=== PATIENT | male | born 1950 | race Caucasian/White ===

== ENCOUNTER → 2017-01-31 | Outpatient (CLI) | payer MEDICARE, OTHER ==
[2015-07-23 10:55] VITALS: BP 133/67
[~2017-01-31] MED LIST: ACET650T10 PO; ALBUTEROL IH; ASPI-482 PO; CEPH-264 PO; CONTRAST GIVEN MC PRN; FENO134C PO; IOHEXOL 240 MG/ML 50ML VIAL. PO ONE; LISI-334 PO; METF500T4 PO; OXYC-244 PO; PROC10TA57 PO; SIMV20TA3 PO
--- NOTE | 2017-01-31 08:45 | RAD ---
Indication follow-up. History of testicular malignancy. PA and lateral views of the chest were obtained. Comparison is made to a study 08/01/2016. The heart, pulmonary vessels and mediastinum appear normal. The lungs are clear of acute infiltrates. Minimally tortuous thoracic aorta is noted. There has not been a significant change in the appearance of the chest compared to the previous exam. IMPRESSION: No acute or focal process. No significant change
--- NOTE | 2017-01-31 09:34 | RAD ---
Indication restage testicular malignancy. Axial images through the abdomen and pelvis were obtained. Oral contrast was administered. IV contrast was not. Comparison is made to a study 08/01/2016. The lung bases are clear. The liver and spleen appear unremarkable. The gallbladder appears grossly normal. No pancreatic or adrenal anomalies are seen. There is a low-density mass associated with the right kidney compatible with a cyst similar to the previous exam. Minute left renal calculi are noted also appearing similar. An acute finding in the abdomen is not seen. There is no significant central or retroperitoneal adenopathy. In the pelvis no acute finding is seen. There is no significant pelvic or inguinal adenopathy. There is no evidence of metastatic disease in the abdomen or pelvis. There are degenerative changes involving both femoral heads left greater than right compatible with AVN. IMPRESSION: No acute finding seen in the abdomen or pelvis. No significant change compared to the examination 6 months ago. No evidence of metastatic disease. Chronic musculoskeletal changes PQRS Compliance Statement: One or more of the following individualized dose reduction techniques were utilized for this examination: 1. Automated exposure control 2. Adjustment of the mA and/or kV according to patient size 3. Use of iterative reconstruction technique
== END | disposition home or self-care (01) ==
LOC: CT 07:25
PROVIDERS: ATTEND Radiology Radiation Oncology
DX: C62.90 Malignant neoplasm of unspecified testis, unspecified whether descended or undescended (principal)
CPT/HCPCS: 71020; 74176; Q9966

== ENCOUNTER 2017-05-02 13:34 | Emergency (ER) | payer OTHER ==
[~2017-05-02] VITALS: Ht 175.3 cm; Wt 97.1 kg
[~2017-05-02 13:34] MED LIST changes: -CONTRAST GIVEN MC PRN; -IOHEXOL 240 MG/ML 50ML VIAL. PO ONE; -OXYC-244 PO; +OXYC-327 PO
[2017-05-02 14:05] VITALS: BP 141/81
--- NOTE | 2017-05-02 14:38 | RAD ---
Indication dizziness. Suspect CVA. Protocol study. A single view of the chest was obtained and is compared to an examination 3 months earlier. The heart and pulmonary vessels are within normal limits. The lungs are clear. No focal infiltrate is seen. There is no significant pleural fluid. A significant change compared to the previous exam is not seen. IMPRESSION: No acute or focal process. No significant change
[2017-05-02 14:43] LABS: BASO % 0 % (0-3); EOS % 4 % (0-3); HEMATOCRIT 42.4 % (39.0-53.0); HEMOGLOBIN 14.4 g/dL (13.0-17.5); LYMPH # 1.7 x10^3/uL (1.0-4.8); LYMPH % 30 % (24-48); MEAN CORPUSCULAR HEMOGLOBIN 31 pg (25-35); MEAN CORPUSCULAR HGB CONC 34 g/dL (31-37); MEAN CORPUSCULAR VOLUME 90 fL (79-100); MONO % 9 % (0-9); NEUT % 57 % (31-73); PLATELET COUNT 281 x10^3/uL (140-400); RED CELL DISTRIBUTION WIDTH 13.5 % (11.5-14.5); WHITE BLOOD COUNT 5.6 x10^3/uL (4.0-11.0)
[2017-05-02 14:50] LABS: CALCIUM 9.6 mg/dL (8.5-10.1); CREATININE 1.7 mg/dL (0.7-1.3); GFR 40.4; POTASSIUM 4.9 mmol/L (3.5-5.1)
[2017-05-02 15:02] LABS: ALBUMIN 4.5 g/dL (3.4-5.0); DIRECT BILIRUBIN 0.1 mg/dL (0.0-0.2); TOTAL BILIRUBIN 0.3 mg/dL (0.2-1.0); TOTAL PROTEIN 7.9 g/dL (6.4-8.2)
[2017-05-02 15:18] LABS: BILIRUBIN,URINE NEGATIVE (NEG); GLUCOSE,URINE NEGATIVE (NEG); NITRITE,URINE NEGATIVE (NEG); PROTEIN,URINE NEGATIVE (NEG-TRACE); UROBILINOGEN,URINE 0.2 mg/dL (0.2 mg/dL)
[2017-05-02 15:56] LABS: BACTERIA,URINE FEW /HPF (0-FEW); RBC,URINE 0 /HPF (0-2); SQUAMOUS EPITHELIAL CELL,UR FEW /LPF; WBC,URINE OCC /HPF (0-4)
--- NOTE | 2017-05-02 16:02 | PHYS DOC ---
Past Medical History Past Medical History: No Pertinent History, Asthma, High Cholesterol, Hypertension Past Surgical History: Other Additional Past Surgical Histo: testical removal Alcohol Use: Rarely Drug Use: None Adult General Chief Complaint Chief Complaint: DIZZY/LIGHT HEADED HPI HPI 66-year-old male presenting the emergency department today with generalized dizziness intermittently over the past 2 weeks. The dizziness comes and goes and is worse with standing up. He reports recently changed her blood pressure medication after which he started having his dizziness. He denies nausea vomiting vision changes or unilateral numbness weakness or tingling. Location generalized. Alleviated by rest. Review of systems was negative for chest pain shortness of breath fevers chills diarrhea constipation. All other review of systems is negative unless otherwise noted in history of present illness. ED course: 66-year-old male presenting to the emergency department today with intermittent dizziness consistent with orthostasis after changing his blood pressure medication. Triage vitals afebrile with a normal heart rate. Pertinent physical examination findings are unremarkable. Normal physical examination. EKG reviewed by myself shows sinus rhythm with a regular rate. ST segments congruent. Not consistent with ACS. Chest x-ray reviewed by myself shows no obvious infiltrate or pneumothorax present. No obvious acute cardiopulmonary process present. Blood work unremarkable. Patient currently is not very symptomatic. Symptoms probably secondary to his blood pressure changes recently. I will refer him back to his primary care physician for continue management of his hypertension and secondary side effects. The patient was then discharged home in stable condition to follow up with their primary care physician over the next 2-3 days. They were to return if their symptoms worsened or if they were concerned for any reason. [id number] discharge instructions and return precautions were given. Patient's questions were answered to their satisfaction. Patient is comfortable plan. Review of Systems Review of Systems SEE ABOVE. Allergies Allergies Allergies Coded Allergies Type Severity Reaction Last Updated Verified ibuprofen Allergy Intermediate ADVISED NOT TO TAKE BY HIS DOCTOR DUE TO KIDNEY PROBLEM 07/23/15 Yes Physical Exam Physical Exam SEE ABOVE Constitutional: Well developed, well nourished, no acute distress, non-toxic appearance. [] HENT: Normocephalic, atraumatic, bilateral external ears normal, oropharynx moist, no oral exudates, nose normal. [] Eyes: PERRLA, EOMI, conjunctiva normal, no discharge. [] Neck: Normal range of motion, no tenderness, supple, no stridor. [] Cardiovascular:Heart rate regular rhythm, no murmur [] Lungs & Thorax: Bilateral breath sounds clear to auscultation [] Abdomen: Bowel sounds normal, soft, no tenderness, no masses, no pulsatile masses. [] Skin: Warm, dry, no erythema, no rash. [] Back: No tenderness, no CVA tenderness. [] Extremities: No tenderness, no cyanosis, no clubbing, ROM intact, no edema. [] Neurologic: Alert and oriented X 3, normal motor function, normal sensory function, no focal deficits noted. [] Psychologic: Affect normal, judgement normal, mood normal. [] Current Patient Data Vital Signs Vital Signs Date Time Temp Pulse Resp B/P (MAP) Pulse Ox O2 Delivery O2 Flow Rate FiO2 05/02/17 14:05 97.8 74 18 141/81 (101) 97 Room Air 97.8 Lab Values Laboratory Tests Test 05/02/17 14:13 05/02/17 15:05 White Blood Count 5.6 x10^3/uL (4.0-11.0) Red Blood Count 4.70 x10^6/uL (4.30-5.70) Hemoglobin 14.4 g/dL (13.0-17.5) Hematocrit 42.4 % (39.0-53.0) Mean Corpuscular Volume 90 fL (79-100) Mean Corpuscular Hemoglobin 31 pg (25-35) Mean Corpuscular Hemoglobin Concent 34 g/dL (31-37) Red Cell Distribution Width 13.5 % (11.5-14.5) Platelet Count 281 x10^3/uL (140-400) Neutrophils (%) (Auto) 57 % (31-73) Lymphocytes (%) (Auto) 30 % (24-48) Monocytes (%) (Auto) 9 % (0-9) Eosinophils (%) (Auto) 4 % (0-3) H Basophils (%) (Auto) 0 % (0-3) Neutrophils # (Auto) 3.2 x10^3uL (1.8-7.7) Lymphocytes # (Auto) 1.7 x10^3/uL (1.0-4.8) Monocytes # (Auto) 0.5 x10^3/uL (0.0-1.1) Eosinophils # (Auto) 0.2 x10^3/uL (0.0-0.7) Basophils # (Auto) 0.0 x10^3/uL (0.0-0.2) Sodium Level 136 mmol/L (136-145) Potassium Level 4.9 mmol/L (3.5-5.1) Chloride Level 100 mmol/L (98-107) Carbon Dioxide Level 27 mmol/L (21-32) Anion Gap 9 (6-14) Blood Urea Nitrogen 29 mg/dL (8-26) H Creatinine 1.7 mg/dL (0.7-1.3) H Estimated GFR (Cockcroft-Gault) 40.4 Glucose Level 109 mg/dL (70-99) H Lactic Acid Level 1.8 mmol/L (0.4-2.0) Calcium Level 9.6 mg/dL (8.5-10.1) Total Bilirubin 0.3 mg/dL (0.2-1.0) Direct Bilirubin 0.1 mg/dL (0.0-0.2) Aspartate Amino Transferase (AST) 30 U/L (15-37) Alanine Aminotransferase (ALT) 41 U/L (16-63) Alkaline Phosphatase 56 U/L (46-116) Troponin I Quantitative < 0.017 ng/mL (0.000-0.055) MN-Tfp-S-Type Natriuretic Peptide 28 pg/mL (0-124) Total Protein 7.9 g/dL (6.4-8.2) Albumin 4.5 g/dL (3.4-5.0) Lipase 100 U/L (73-393) Urine Collection Type Void Urine Color Yellow Urine Clarity Clear Urine pH 5.0 Urine Specific [place] 1.015 Urine Protein Negative mg/dL (NEG-TRACE) Urine Glucose (UA) Negative mg/dL (NEG) Urine Ketones (Stick) Negative mg/dL (NEG) Urine Blood Negative (NEG) Urine Nitrite Negative (NEG) Urine Bilirubin Negative (NEG) Urine Urobilinogen Dipstick 0.2 mg/dL (0.2 mg/dL) Urine Leukocyte Esterase Negative (NEG) Urine RBC 0 /HPF (0-2) Urine WBC Occ /HPF (0-4) Urine Squamous Epithelial Cells Few /LPF Urine Bacteria Few /HPF (0-FEW) Urine Hyaline Casts Few /HPF Urine Mucus Mod /LPF Laboratory Tests 05/02/17 14:13 Laboratory Tests 05/02/17 14:13 EKG EKG [] Radiology/Procedures Radiology/Procedures [] Course & Med Decision Making Course & Med Decision Making Pertinent Labs and Imaging studies reviewed. (See chart for details) [] Dragon Disclaimer Dragon Disclaimer This electronic medical record was generated, in whole or in part, using a voice recognition dictation system. Departure Departure Impression: Primary Impression: Dizziness Additional Impression: Orthostatic dizziness Disposition: HOME, SELF-CARE Condition: STABLE Referrals: KASSANDRA MOHAN MD (PCP) Patient Instructions: Dizziness, [id number] Additional Instructions: Thank you for allowing us to participate in your care today. Followup with your primary care physician in 3 days if your symptoms do not improve. Call your Primary Doctor tomorrow and inform them of your visit today. If you do not have a primary care provider you can ask for a list of our primary care providers. Return to the emergency department you have any new or concerning findings. This should be evaluated by the primary care physician and any necessary consulting services for continued management within a few days after discharge. Return to emergency room if you have any new or concerning symptoms including but not limited to fever, chills, nausea, vomiting, intractable pain, any new rashes, chest pain, shortness of air, uncontrolled bleeding, difficulty breathing, and/or vision loss. Problem Qualifiers IRENA CASTANON MD May 02, 2017 16:02
--- NOTE | 2017-05-02 16:34 | EKG ---
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
== END 2017-05-02 16:16 | disposition home or self-care (01) ==
LOC: ER 13:34
DX: I10 Essential (primary) hypertension (principal); J45.909 Unspecified asthma, uncomplicated; E78.00 Pure hypercholesterolemia, unspecified; Z88.6 Allergy status to analgesic agent
CPT/HCPCS: 36415; 71010; 80048; 80076; 81001; 83605; 83690; 83880; 84484; 85025; 93005; 99285-25

== ENCOUNTER 2017-07-12 13:58 | Inpatient (IN) | payer OTHER, MEDICARE ==
[~2017-07-12] VITALS: Ht 152.4 cm; Wt 97.1 kg
--- NOTE | 2017-07-12 15:22 | PHYS DOC ---
Past Medical History Past Medical History: Asthma, Cancer, High Cholesterol, Hypertension, Other Additional Past Medical Histor: CHRONIC TINNITUS R/T NERVE DAMAGE,TESTICULAR CA W/ RADIATION [place] Past Surgical History: Other Additional Past Surgical Histo: testical removal Alcohol Use: Rarely Drug Use: None Adult General Chief Complaint Chief Complaint: HEADACHE HPI HPI 66-year-old male with a history of hypertension now presents to the emergency department complaining of a several day history of mild gradual onset headache and "feeling funny" today. He describes his blood pressures been uncontrolled recently. He also feels dehydrated and his glucose on arrival was in the 180s. Patient reports taking his diabetic meds and being reasonably compliant with his diabetic diet but not completely so. No chest pain or shortness of breath. No neurologic complaints with normal vision speech strength coordination and gait no fevers chills sweats or shaking chills. Normal bowel and bladder habits No other complaints Review of Systems Review of Systems Constitutional: Denies fever or chills [] Eyes: Denies change in visual acuity, redness, or eye pain [] HENT: Denies nasal congestion or sore throat [] Respiratory: Denies cough or shortness of breath [] Cardiovascular: No additional information not addressed in HPI [] GI: Denies abdominal pain, nausea, vomiting, bloody stools or diarrhea [] : Denies dysuria or hematuria [] Musculoskeletal: Denies back pain or joint pain [] Integument: Denies rash or skin lesions [] Neurologic: Denies headache, focal weakness or sensory changes [] Endocrine: Denies polyuria or polydipsia [] All other systems were reviewed and found to be within normal limits, except as documented in this note. Current Medications Current Medications Current Medications Medications (Trade) Dose Ordered Sig/Alicia Start Time Stop Time Status Last Admin Dose Admin Sodium Chloride 1,000 ml @ 125 mls/hr Q8H 07/12/17 17:14 07/13/17 17:13 Allergies Allergies Allergies Coded Allergies Type Severity Reaction Last Updated Verified ibuprofen Allergy Intermediate ADVISED NOT TO TAKE BY HIS DOCTOR DUE TO KIDNEY PROBLEM 07/23/15 Yes Physical Exam Physical Exam Well-appearing 66-year-old male no acute distress alert and communicative cooperative and appropriate supple neck clear lungs regular rate and rhythm no tachycardia benign abdomen normal remedies nonfocal neuro bleeding extended cranial nerve exam. Constitutional: Well developed, well nourished, no acute distress, non-toxic appearance. [] HENT: Normocephalic, atraumatic, bilateral external ears normal, oropharynx moist, no oral exudates, nose normal. [] Eyes: PERRLA, EOMI, conjunctiva normal, no discharge. [] Neck: Normal range of motion, no tenderness, supple, no stridor. [] Cardiovascular:Heart rate regular rhythm, no murmur [] Lungs & Thorax: Bilateral breath sounds clear to auscultation [] Abdomen: Bowel sounds normal, soft, no tenderness, no masses, no pulsatile masses. [] Skin: Warm, dry, no erythema, no rash. [] Back: No tenderness, no CVA tenderness. [] Extremities: No tenderness, no cyanosis, no clubbing, ROM intact, no edema. [] Neurologic: Alert and oriented X 3, normal motor function, normal sensory function, no focal deficits noted. [] Psychologic: Affect normal, judgement normal, mood normal. [] Current Patient Data Vital Signs Vital Signs Date Time Temp Pulse Resp B/P (MAP) Pulse Ox O2 Delivery O2 Flow Rate FiO2 07/12/17 16:11 82 16 93 07/12/17 14:11 97.9 153/79 (103) Room Air 97.9 Lab Values Laboratory Tests Test 07/12/17 14:26 07/12/17 16:00 Glucose (Fingerstick) 181 mg/dL (70-99) H White Blood Count 6.9 x10^3/uL (4.0-11.0) Red Blood Count 4.81 x10^6/uL (4.30-5.70) Hemoglobin 14.7 g/dL (13.0-17.5) Hematocrit 43.8 % (39.0-53.0) Mean Corpuscular Volume 91 fL (79-100) Mean Corpuscular Hemoglobin 31 pg (25-35) Mean Corpuscular Hemoglobin Concent 34 g/dL (31-37) Red Cell Distribution Width 13.4 % (11.5-14.5) Platelet Count 308 x10^3/uL (140-400) Neutrophils (%) (Auto) 70 % (31-73) Lymphocytes (%) (Auto) 18 % (24-48) L Monocytes (%) (Auto) 8 % (0-9) Eosinophils (%) (Auto) 3 % (0-3) Basophils (%) (Auto) 1 % (0-3) Neutrophils # (Auto) 4.8 x10^3uL (1.8-7.7) Lymphocytes # (Auto) 1.3 x10^3/uL (1.0-4.8) Monocytes # (Auto) 0.6 x10^3/uL (0.0-1.1) Eosinophils # (Auto) 0.2 x10^3/uL (0.0-0.7) Basophils # (Auto) 0.1 x10^3/uL (0.0-0.2) Segmented Neutrophils % 61 % (35-66) Band Neutrophils % 4 % (0-9) Lymphocytes % 18 % (24-48) L Atypical Lymphocytes % (Manual) 1 % (0-0) H Monocytes % 8 % (0-10) Eosinophils % 4 % (0-5) Basophils % 2 % (0-3) Myelocytes % 2 % (0-0) H Platelet Estimate Adequate (ADEQUATE) Sodium Level 136 mmol/L (136-145) Potassium Level 5.9 mmol/L (3.5-5.1) H Chloride Level 101 mmol/L (98-107) Carbon Dioxide Level 26 mmol/L (21-32) Anion Gap 9 (6-14) Blood Urea Nitrogen 32 mg/dL (8-26) H Creatinine 2.0 mg/dL (0.7-1.3) H Estimated GFR (Cockcroft-Gault) 33.5 BUN/Creatinine Ratio 16 (6-20) Glucose Level 139 mg/dL (70-99) H Calcium Level 9.6 mg/dL (8.5-10.1) Total Bilirubin 0.3 mg/dL (0.2-1.0) Aspartate Amino Transferase (AST) 33 U/L (15-37) Alanine Aminotransferase (ALT) 39 U/L (16-63) Alkaline Phosphatase 57 U/L (46-116) Troponin I Quantitative < 0.017 ng/mL (0.000-0.055) Total Protein 7.8 g/dL (6.4-8.2) Albumin 4.4 g/dL (3.4-5.0) Albumin/Globulin Ratio 1.3 (1.0-1.7) Thyroid Stimulating Hormone (TSH) 1.842 uIU/mL (0.358-3.74) Laboratory Tests 07/12/17 16:00 Laboratory Tests 07/12/17 16:00 EKG EKG EKG normal sinus rhythm at 85 normal axis no STEMI interpreted by me[] Radiology/Procedures Radiology/Procedures Chest x-ray normal no acute disease interpreted by me[] Course & Med Decision Making Course & Med Decision Making Pertinent Labs and Imaging studies reviewed. (See chart for details) Signs and symptoms consistent with vague generalized symptoms in a patient with type 2 diabetes, poorly controlled hypertension. She blood pressure sure has been elevated but not critically so. Chest x-ray and EKG unremarkable. Full workup reveals potassium of 5.9 in the setting of acute renal injury with creatinine BUN/creatinine 32 and 2. Treatment initiated for hyperkalemia and case discussed with patient's primary care doctor Dr. Guardado. She is aware the history and findings and agrees with inpatient admission to her service to a telemetry bed for further workup and treatment as needed. Patient and aware and agree. [] Dragon Disclaimer Dragon Disclaimer This electronic medical record was generated, in whole or in part, using a voice recognition dictation system. Departure Departure Impression: Primary Impression: Uncontrolled hypertension Additional Impressions: Acute renal injury Hyperkalemia Disposition: ADMITTED INPATIENT Admitting Physician: Alexia Guardado Condition: STABLE Referrals: ALEXIA GUARDADO MD (PCP) Problem Qualifiers JIE MARTEL MD Jul 12, 2017 15:22
--- NOTE | 2017-07-12 15:41 | RAD ---
Portable chest, 07/12/2017: History: Dizziness, lightheadedness Comparison is made to a study from 05/02/2017. The heart size and pulmonary vascularity are normal. There is mild tortuosity of the thoracic aorta. No pulmonary infiltrates are seen. There is a calcified granuloma in the right base. There is no evidence of pleural fluid. IMPRESSION: No acute cardiopulmonary abnormality is detected.
[2017-07-12] MEDS: IV NORMAL SALINE 1000ML BAG 1,000 ML IV SCH ×10 (16:11→23:22)
[2017-07-12 16:12] LABS: BASO # 0.1 x10^3/uL (0.0-0.2); BASO % 1 % (0-3); EOS % 3 % (0-3); HEMATOCRIT 43.8 % (39.0-53.0); HEMOGLOBIN 14.7 g/dL (13.0-17.5); LYMPH # 1.3 x10^3/uL (1.0-4.8); LYMPH % 18 % (24-48); MEAN CORPUSCULAR HEMOGLOBIN 31 pg (25-35); MEAN CORPUSCULAR HGB CONC 34 g/dL (31-37); MEAN CORPUSCULAR VOLUME 91 fL (79-100); MONO % 8 % (0-9); NEUT % 70 % (31-73); PLATELET COUNT 308 x10^3/uL (140-400); RED BLOOD COUNT 4.81 x10^6/uL (4.30-5.70); RED CELL DISTRIBUTION WIDTH 13.4 % (11.5-14.5); WHITE BLOOD COUNT 6.9 x10^3/uL (4.0-11.0)
--- NOTE | 2017-07-12 16:19 | EKG ---
[facility] [address] [place] [address] Test Date: 2017-07-12 Test Time: 15:59:37 Pat Name: LINO DUMAS Department: Room: Gender: M [employer] Automatic: : 1950 Requested By: JIE MARTEL Order Number: [id number] Reading MD: Hermilo Cotter MD Measurements Intervals [place] Rate: 85 P: 43 OR: 146 QRS: 46 QRSD: 84 T: 50 QT: 360 QTc: 429 Interpretive Statements SINUS RHYTHM Electronically Signed On 07-16-2017 14:08:46 TABULATING CLERK by Hermilo Cotter MD
[2017-07-12 16:25] LABS: CALCIUM 9.6 mg/dL (8.5-10.1); GFR 33.5; POTASSIUM 5.9 mmol/L (3.5-5.1)
[2017-07-12 16:30] LABS: ALBUMIN 4.4 g/dL (3.4-5.0); ALBUMIN/GLOBULIN RATIO 1.3 (1.0-1.7); TOTAL BILIRUBIN 0.3 mg/dL (0.2-1.0); TOTAL PROTEIN 7.8 g/dL (6.4-8.2)
[2017-07-12 16:35] LABS: % BASOS 2 % (0-3); % EOS 4 % (0-5); PLT ESTIMATE ADEQUATE (ADEQUATE)
[2017-07-12] MEDS ORDERED: INSULIN REGULAR 100 UNIT/ML 10ML VIAL. IV ONE (17:15)
[2017-07-12] MEDS ORDERED: SODIUM BICARB ADULT 8.4% 50 MEQ/50 ML DISP.SYRIN. IV ONE (17:15)
[2017-07-12] MEDS ORDERED: DEXTROSE 50% 25 GM / 50ML DISP.SYRIN. IV ONE (17:15)
[2017-07-12] MEDS ORDERED: CALCIUM GLUCONATE 100 MG/ML VIAL for DOSE IN MG. IV ONE (17:15)
[2017-07-12] MEDS ORDERED: ONDANSETRON PF 4 MG/2 ML VIAL. IV PRN (17:15)
[2017-07-12 19:48] LABS: BILIRUBIN,URINE NEGATIVE (NEG); GLUCOSE,URINE 100 mg/dL (NEG); NITRITE,URINE NEGATIVE (NEG); PROTEIN,URINE NEGATIVE (NEG-TRACE); UROBILINOGEN,URINE 0.2 mg/dL (0.2 mg/dL)
[2017-07-12 20:00] VITALS: BP 118/74
[2017-07-12 20:01] LABS: BACTERIA,URINE 0 /HPF (0-FEW); RBC,URINE 0 /HPF (0-2); SQUAMOUS EPITHELIAL CELL,UR FEW /LPF; WBC,URINE OCC /HPF (0-4)
[2017-07-12] MEDS ORDERED: LISI40TA PO (20:18)
[2017-07-12] MEDS ORDERED: ACETAMINOPHEN 325 MG TABLET. PO PRN (20:30)
[2017-07-12] MEDS ORDERED: FENOFIBRATE,MICRONIZED 134 MG CAPSULE PO SCH (21:00)
[2017-07-12] MEDS ORDERED: SIMVASTATIN 20 MG TABLET PO SCH (21:00)
[2017-07-13 00:19] VITALS: BP 122/73
[2017-07-13] MEDS: IV NORMAL SALINE 1000ML BAG 1,000 ML IV SCH ×2 (00:50→05:15)
[2017-07-13 03:00] VITALS: BP 120/66
[2017-07-13 06:16] LABS: CALCIUM 8.9 mg/dL (8.5-10.1); CREATININE 1.5 mg/dL (0.7-1.3); GFR 46.7; POTASSIUM 4.9 mmol/L (3.5-5.1)
[2017-07-13 07:00] VITALS: BP 153/79
--- NOTE | 2017-07-13 08:39 | RAD ---
Renal bilateral ultrasound and duplex 07/12/2017 Clinical indication: Acute renal failure, hypertension. Comparison: CT abdomen and pelvis 01/31/2017 Findings: Right kidney is present measuring 12.9 cm in length without collecting system dilatation. There is a simple appearing superior pole cyst measuring up to 3.0 cm. Patency of the visualized main right renal artery with maximum velocity of 178 cm/s at the mid aspect and distally the velocity is 75 cm/s. There is no delayed systolic acceleration. Main right renal vein is patent. Abdominal aorta demonstrate maximum velocity 88 cm/s. Left kidney is present measuring 11.7 cm in length without collection system dilatation. There is a 0.5 cm echogenicity in the inferior pole of the left kidney compatible with a calculus. There is a tiny 1 cm cyst at the interpolar left kidney. The main right renal artery is patent with maximal velocity of 197 cm/s at the mid aspect. No delayed systolic acceleration. Impression: 1. Mildly elevated velocity at the origin of the main left renal artery which remains patent with no distal tardus parvus waveforms, and may be artifactual. 2. No evidence of right renal arterial stenosis. 3. Both kidneys present without hydronephrosis. 4. A few bilateral renal cysts and probable nonobstructive 0.5 cm left renal calculus.
--- NOTE | 2017-07-13 08:49 | PDOC ---
PROGRESS NOTES Subjective Subjective Patient states that he feels better. Objective Objective Vital Signs Date Time Temp Pulse Resp B/P (MAP) Pulse Ox O2 Delivery O2 Flow Rate FiO2 07/13/17 07:00 97.7 76 18 153/79 (103) 95 Room Air 97.7 07/12/17 20:00 99.0 Intake and Output 07/13/17 07:00 Intake Total 2100 ml Output Total 1200 ml Balance 900 ml Intake Oral 100 ml IV Total 2000 ml Output Urine Total 1200 ml # Voids 1 Physical Exam Abdomen: Normal bowel sounds, Soft, No tenderness Heart: Regular rate Extremities: No edema General: Alert, Oriented X3, No acute distress Lungs: Clear to auscultation Assessment Assessment Problems Medical Problems: (1) Acute renal injury Status: Acute (2) Hyperkalemia Status: Acute Plan Plan of Care 1. Acute renal failure with CKD III - lab much improved with hydration overnight. Taking po well now, will d/c IVF. Consult Nephrology. Renal artery dopplers done this AM, results pending. 2. HTN - BP elevated at admission, improved now. Will resume his usual Lisinopril and follow. 3. DM2 - stable. Metformin held due to renal failure as above. Should be able to resume at discharge or can treat with different medication if Renal advises d /c of Metformin. 4. asthma - stable with prn Albuterol. Has already had flu shot this fall. 5. 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 6. Viral illness - appears to have resolved. Comment Review of Relevant I have reviewed the following items nnamdi (where applicable) has been applied. Labs Laboratory Tests Test 07/12/17 14:26 07/12/17 16:00 07/12/17 19:35 07/13/17 05:15 Glucose (Fingerstick) 181 mg/dL (70-99) White Blood Count 6.9 x10^3/uL (4.0-11.0) Red Blood Count 4.81 x10^6/uL (4.30-5.70) Hemoglobin 14.7 g/dL (13.0-17.5) Hematocrit 43.8 % (39.0-53.0) Mean Corpuscular Volume 91 fL (79-100) Mean Corpuscular Hemoglobin 31 pg (25-35) Mean Corpuscular Hemoglobin Concent 34 g/dL (31-37) Red Cell Distribution Width 13.4 % (11.5-14.5) Platelet Count 308 x10^3/uL (140-400) Neutrophils (%) (Auto) 70 % (31-73) Lymphocytes (%) (Auto) 18 % (24-48) Monocytes (%) (Auto) 8 % (0-9) Eosinophils (%) (Auto) 3 % (0-3) Basophils (%) (Auto) 1 % (0-3) Neutrophils # (Auto) 4.8 x10^3uL (1.8-7.7) Lymphocytes # (Auto) 1.3 x10^3/uL (1.0-4.8) Monocytes # (Auto) 0.6 x10^3/uL (0.0-1.1) Eosinophils # (Auto) 0.2 x10^3/uL (0.0-0.7) Basophils # (Auto) 0.1 x10^3/uL (0.0-0.2) Segmented Neutrophils % 61 % (35-66) Band Neutrophils % 4 % (0-9) Lymphocytes % 18 % (24-48) Atypical Lymphocytes % (Manual) 1 % (0-0) Monocytes % 8 % (0-10) Eosinophils % 4 % (0-5) Basophils % 2 % (0-3) Myelocytes % 2 % (0-0) Platelet Estimate Adequate (ADEQUATE) Sodium Level 136 mmol/L (136-145) 138 mmol/L (136-145) Potassium Level 5.9 mmol/L (3.5-5.1) 4.9 mmol/L (3.5-5.1) Chloride Level 101 mmol/L (98-107) 104 mmol/L (98-107) Carbon Dioxide Level 26 mmol/L (21-32) 25 mmol/L (21-32) Anion Gap 9 (6-14) 9 (6-14) Blood Urea Nitrogen 32 mg/dL (8-26) 29 mg/dL (8-26) Creatinine 2.0 mg/dL (0.7-1.3) 1.5 mg/dL (0.7-1.3) Estimated GFR (Cockcroft-Gault) 33.5 46.7 BUN/Creatinine Ratio 16 (6-20) Glucose Level 139 mg/dL (70-99) 126 mg/dL (70-99) Calcium Level 9.6 mg/dL (8.5-10.1) 8.9 mg/dL (8.5-10.1) Total Bilirubin 0.3 mg/dL (0.2-1.0) Aspartate Amino Transf (AST/SGOT) 33 U/L (15-37) Alanine Aminotransferase (ALT/SGPT) 39 U/L (16-63) Alkaline Phosphatase 57 U/L (46-116) Troponin I Quantitative < 0.017 ng/mL (0.000-0.055) Total Protein 7.8 g/dL (6.4-8.2) Albumin 4.4 g/dL (3.4-5.0) Albumin/Globulin Ratio 1.3 (1.0-1.7) Thyroid Stimulating Hormone (TSH) 1.842 uIU/mL (0.358-3.74) Urine Collection Type Unknown Urine Color Yellow Urine Clarity Clear Urine pH 7.0 Urine Specific [place] 1.015 Urine Protein Negative mg/dL (NEG-TRACE) Urine Glucose (UA) 100 mg/dL (NEG) Urine Ketones (Stick) Negative mg/dL (NEG) Urine Blood Negative (NEG) Urine Nitrite Negative (NEG) Urine Bilirubin Negative (NEG) Urine Urobilinogen Dipstick 0.2 mg/dL (0.2 mg/dL) Urine Leukocyte Esterase Negative (NEG) Urine RBC 0 /HPF (0-2) Urine WBC Occ /HPF (0-4) Urine Squamous Epithelial Cells Few /LPF Urine Bacteria 0 /HPF (0-FEW) Urine Hyaline Casts Moderate /HPF Test 07/13/17 07:31 Glucose (Fingerstick) 211 mg/dL (70-99) Laboratory Tests Test 07/12/17 14:26 07/12/17 16:00 07/12/17 19:35 07/13/17 05:15 Glucose (Fingerstick) 181 mg/dL (70-99) White Blood Count 6.9 x10^3/uL (4.0-11.0) Red Blood Count 4.81 x10^6/uL (4.30-5.70) Hemoglobin 14.7 g/dL (13.0-17.5) Hematocrit 43.8 % (39.0-53.0) Mean Corpuscular Volume 91 fL (79-100) Mean Corpuscular Hemoglobin 31 pg (25-35) Mean Corpuscular Hemoglobin Concent 34 g/dL (31-37) Red Cell Distribution Width 13.4 % (11.5-14.5) Platelet Count 308 x10^3/uL (140-400) Neutrophils (%) (Auto) 70 % (31-73) Lymphocytes (%) (Auto) 18 % (24-48) Monocytes (%) (Auto) 8 % (0-9) Eosinophils (%) (Auto) 3 % (0-3) Basophils (%) (Auto) 1 % (0-3) Neutrophils # (Auto) 4.8 x10^3uL (1.8-7.7) Lymphocytes # (Auto) 1.3 x10^3/uL (1.0-4.8) Monocytes # (Auto) 0.6 x10^3/uL (0.0-1.1) Eosinophils # (Auto) 0.2 x10^3/uL (0.0-0.7) Basophils # (Auto) 0.1 x10^3/uL (0.0-0.2) Segmented Neutrophils % 61 % (35-66) Band Neutrophils % 4 % (0-9) Lymphocytes % 18 % (24-48) Atypical Lymphocytes % (Manual) 1 % (0-0) Monocytes % 8 % (0-10) Eosinophils % 4 % (0-5) Basophils % 2 % (0-3) Myelocytes % 2 % (0-0) Platelet Estimate Adequate (ADEQUATE) Sodium Level 136 mmol/L (136-145) 138 mmol/L (136-145) Potassium Level 5.9 mmol/L (3.5-5.1) 4.9 mmol/L (3.5-5.1) Chloride Level 101 mmol/L (98-107) 104 mmol/L (98-107) Carbon Dioxide Level 26 mmol/L (21-32) 25 mmol/L (21-32) Anion Gap 9 (6-14) 9 (6-14) Blood Urea Nitrogen 32 mg/dL (8-26) 29 mg/dL (8-26) Creatinine 2.0 mg/dL (0.7-1.3) 1.5 mg/dL (0.7-1.3) Estimated GFR (Cockcroft-Gault) 33.5 46.7 BUN/Creatinine Ratio 16 (6-20) Glucose Level 139 mg/dL (70-99) 126 mg/dL (70-99) Calcium Level 9.6 mg/dL (8.5-10.1) 8.9 mg/dL (8.5-10.1) Total Bilirubin 0.3 mg/dL (0.2-1.0) Aspartate Amino Transf (AST/SGOT) 33 U/L (15-37) Alanine Aminotransferase (ALT/SGPT) 39 U/L (16-63) Alkaline Phosphatase 57 U/L (46-116) Troponin I Quantitative < 0.017 ng/mL (0.000-0.055) Total Protein 7.8 g/dL (6.4-8.2) Albumin 4.4 g/dL (3.4-5.0) Albumin/Globulin Ratio 1.3 (1.0-1.7) Thyroid Stimulating Hormone (TSH) 1.842 uIU/mL (0.358-3.74) Urine Collection Type Unknown Urine Color Yellow Urine Clarity Clear Urine pH 7.0 Urine Specific [place] 1.015 Urine Protein Negative mg/dL (NEG-TRACE) Urine Glucose (UA) 100 mg/dL (NEG) Urine Ketones (Stick) Negative mg/dL (NEG) Urine Blood Negative (NEG) Urine Nitrite Negative (NEG) Urine Bilirubin Negative (NEG) Urine Urobilinogen Dipstick 0.2 mg/dL (0.2 mg/dL) Urine Leukocyte Esterase Negative (NEG) Urine RBC 0 /HPF (0-2) Urine WBC Occ /HPF (0-4) Urine Squamous Epithelial Cells Few /LPF Urine Bacteria 0 /HPF (0-FEW) Urine Hyaline Casts Moderate /HPF Test 07/13/17 07:31 Glucose (Fingerstick) 211 mg/dL (70-99) Medications Current Medications Sodium Chloride 1,000 ml @ 999 mls/hr Q1H1M IV Last administered on 16:11; Start 07/12/17 at 15:14; Stop 07/12/17 at 23:50; Status DC Calcium Gluconate (Calcium Gluconate) 1,000 mg 1X ONCE IV Last administered on 07/12/17 17:33; Start 07/12/17 at 17:15; Stop 07/12/17 at 17:16; Status DC Sodium Bicarbonate 50 meq 1X ONCE IV Last administered on 07/12/17 17:33; Start 07/12/17 at 17:15; Stop 07/12/17 at 17:16; Status DC Insulin Human Regular (NovoLIN R VIAL) 10 unit 1X ONCE IV Last administered on 07/12/17 17:35; Start 07/12/17 at 17:15; Stop 07/12/17 at 17:16; Status DC Dextrose (Dextrose 50%-Water Syringe) 25 gm 1X ONCE IV Last administered on 17:33; Start 07/12/17 at 17:15; Stop 07/12/17 at 17:16; Status DC Ondansetron HCl (Zofran) 4 mg PRN Q8HRS PRN IV NAUSEA/VOMITING; Start at 17:15; Stop 07/13/17 at 17:14 Sodium Chloride 1,000 ml @ 125 mls/hr Q8H IV Last administered on 07/13/17 05:15; Start 07/12/17 at 17:14; Stop 07/13/17 at 17:13 Aspirin (Ecotrin) 81 mg DAILY PO ; Start 07/13/17 at 09:00 Fenofibrate (Lofibra) 134 mg QHS PO ; Start 07/12/17 at 21:00 Metformin HCl (Glucophage) 1,000 mg DAILYBFRSUP PO ; Start 07/13/17 at 17:00; Stop 07/13/17 at 17:00; Status DC Simvastatin (Zocor) 20 mg QHS PO ; Start 07/12/17 at 21:00 Acetaminophen (Tylenol) 650 mg PRN Q6HRS PRN PO PAIN; Start 07/12/17 at 20:30 Lisinopril (Prinivil) 40 mg DAILY PO ; Start 07/13/17 at 09:00 Active Scripts Active Lisinopril 40 Mg Tablet 1 Tab PO DAILY Reported Aspir 81 (Aspirin) 81 Mg Tablet.dr 81 Mg PO DAILY Arthritis Pain Reliever (Acetaminophen) 650 Mg Tablet.er 650 Mg PO PRN PRN [Albuterol] 2 Puff IH PRN BID PRN Metformin Hcl 500 Mg Tablet 2 Tab PO DAILYBFRSUP Simvastatin 20 Mg Tablet 1 Tab PO QHS Fenofibrate (Fenofibrate,Micronized) 134 Mg Capsule 1 Cap PO QHS Vitals/I & O Vital Sign - Last 24 Hours 07/12/17 07/12/17 07/12/17 07/12/17 14:11 15:11 15:41 16:11 Temp 97.9 97.9 Pulse 93 90 82 82 Resp 18 13 16 16 B/P (MAP) 153/79 (103) Pulse Ox 94 93 93 93 O2 Delivery Room Air 07/12/17 07/12/17 07/12/17 07/12/17 16:41 17:11 17:41 18:11 Pulse 76 78 88 84 Resp 17 19 12 17 Pulse Ox 93 93 97 94 07/12/17 07/12/17 07/12/17 07/12/17 18:41 19:11 19:41 20:00 Pulse 82 78 Resp 16 25 12 Pulse Ox 92 93 O2 Delivery Room Air 07/12/17 07/13/17 07/13/17 07/13/17 20:00 00:19 03:00 07:00 Temp 98.0 97.0 97.7 98.0 97.0 97.7 Pulse 86 85 84 76 Resp 18 18 18 18 B/P (MAP) 118/74 (89) 122/73 (89) 120/66 (84) 153/79 (103) Pulse Ox 95 O2 Delivery Room Air Room Air Room Air Room Air O2 Flow Rate 99.0 Intake and Output 07/12/17 07/12/17 07/13/17 15:00 23:00 07:00 Intake Total 1000 ml 1100 ml Output Total 400 ml 800 ml Balance 600 ml 300 ml KASSANDRA MOHAN MD Jul 13, 2017 08:49
[2017-07-13] MEDS ORDERED: LISINOPRIL 40 MG TABLET. PO SCH (09:00)
[2017-07-13] MEDS ORDERED: ASPIRIN ENTERIC COATED 81 MG TABLET.DR. PO SCH (09:00)
--- NOTE | 2017-07-13 09:34 | HP ---
ADMIT DATE: 07/12/2017 CHIEF COMPLAINT: Headache and malaise. HISTORY OF PRESENT ILLNESS: The patient is a 66-year-old male who presented to the Emergency Room with the above complaint. He reported the onset of symptoms on the day prior to admission. He had a feeling of malaise and fatigue and a posterior headache. He took the day off work and stayed home and rested most of the day. He took some Tylenol for his headache and this improved it. He checked his blood pressure at home several times that day. It was initially quite elevated at 180/90, but he then realized he had not taken his usual lisinopril. He took his medication and when he checked her blood pressure several hours later, it was in the 140 systolic. The patient woke up feeling better on the day of admission, so he went to work. He did not eat breakfast the way he normally does as he just did not have an appetite. He worked in the morning without problems, but when he sat down for lunch, he began to feel lightheaded and weak. He was able to eat some of his meal, but when his symptoms persisted, he presented to the Emergency Room. Initial evaluation there showed him to be in acute renal failure with a BUN of 32, creatinine of 2.0 and potassium elevated at 5.9. Treatment was initiated and he was admitted. PAST MEDICAL HISTORY: Hypertension, diabetes mellitus type 2, hyperlipidemia, asthma, seminoma, chronic kidney disease stage 3. PAST SURGICAL HISTORY: Renal stone removal; facial fracture reconstruction; inguinal hernia repair, 07/2015; left radical orchiectomy, 07/2015. ALLERGIES: THE PATIENT IS ALLERGIC TO IBUPROFEN. HOME MEDICATIONS: Aspirin 81 mg daily, albuterol p.r.n., Tylenol p.r.n., fenofibrate 134 mg daily, simvastatin 20 mg daily, lisinopril 40 mg daily, metformin 500 mg extended release 2 tabs once a day with evening meal. FAMILY HISTORY: Noncontributory. SOCIAL HISTORY: The patient is . He does not smoke cigarettes or drink alcohol. 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 REVIEW OF SYSTEMS: The patient denies fever or chills with his recent illness. He denies cough or shortness of breath. The patient has already received his flu shot this fall. He denies chest pain or palpitations. He denies abdominal pain, nausea or vomiting. He had a decreased appetite for the past few days, but this seems to be improved today. He denies dysuria or change in his urine output. He has been watching his diet for sugar more carefully as advised. He does not check his fingersticks at home. PHYSICAL EXAMINATION: GENERAL: The patient is alert and oriented x 3, sitting up at the bedside, in no acute distress, eating breakfast with a good appetite. HEENT: PERRL, EOMI, sclerae clear. Oropharynx: Mucous membranes moist. NECK: Supple, without lymphadenopathy. CHEST: Clear to auscultation with normal respiratory effort and good breath sounds throughout. CARDIOVASCULAR: Regular rhythm without murmur. ABDOMEN: Soft, nontender. Normoactive bowel sounds are present. EXTREMITIES: Without edema. ASSESSMENT AND PLAN: 1. Acute renal failure with chronic kidney disease stage 3. The patient's lab is much improved overnight with treatment for the hyperkalemia and IV fluids for hydration. His BUN is 29. This morning, his creatinine is 1.5, which is about at his baseline. The patient is taking food and enough fluids without problems. We will discontinue his IV fluid this afternoon. We will consult Nephrology to help with further recommendations for care. Renal artery Dopplers were done this morning, the results are pending. 2. Hypertension. The patient's blood pressure was mildly elevated at admission. It is improved now. We will resume his usual lisinopril and follow this. 3. Diabetes mellitus type 2. This is stable. Metformin withheld due to his renal failure as above. Should be able to resume this at discharge or can treat him with a different medication if renal advises that the metformin be permanently discontinued. 4. Asthma. This is stable with p.r.n. albuterol. 5. History of seminoma. There was no evidence of recurrence on the patient's last yearly labs done in March. KASSANDRA MOHAN MD DR: ITA/alexander JOB#: [id number] / [id number] SEIRRA
[2017-07-13 11:00] VITALS: BP 139/78
--- NOTE | 2017-07-13 12:11 | PDOC2 ---
CONSULT Date of Consult Date of Consult DATE: 07/13/17 TIME: 12:02 Reason for Consult Reason for Consult: LUIZ Referring Physician Referring Physician: KIMBERLEE Identification/Chief Complaint Chief Complaint HEADACHE Problems: Source Source: Chart review, Patient History of Present Illness Reason for Visit: THIS IS A 66 YR OLD WHO CAME IN DUE TO A BAD HEADACHE. APPARENTLY HIS BP WAS VERY HIGH AT HOME AND LABILE. HE PRESENTED TO THE ER AND BY THAT TIME ANTONIO WAS RESOLVED. HOWEVER LABS TEST SHOWED A K OF 5.9 AND A CR OF 2.0. BASELINE CR IS ABOUT 1.5. DUE TO HTN RELATED NEPHROSCLEROSIS. NO NSAID USE. NO HX OF ANY KIDNEY OR BLADDER SURGERIES HEMATURIA DYSURIA OR FREQUENCY. HAS BEEN ON LISINOPRIL. HE WAS GIVEN SOME IVF'S OVER NIGHT AND HAS HAD RESOLUTION OF HIS ELECTROLYTE IMBALANCE AND LUIZ. 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 NONE OF LATE AND NO FLANK PAIN Past Medical History Past Medical History RENAL STONES IN THE REMOTE PAST, SEMINOMA Cardiovascular: HTN, Hyperlipidemia Renal/: Chronic renal insuff Endocrine: Diabetes Past Surgical History Past Surgical History LEFT ORCHIECTOMY, FACIAL RECONSTRUCTION, INGUINAL HERNIA REPAIR Current Problem List Problem List Problems Medical Problems: (1) Acute renal injury Status: Acute (2) Hyperkalemia Status: Acute Current Medications Current Medications Current Medications Sodium Chloride 1,000 ml @ 999 mls/hr Q1H1M IV Last administered on 16:11; Start 07/12/17 at 15:14; Stop 07/12/17 at 23:50; Status DC Calcium Gluconate (Calcium Gluconate) 1,000 mg 1X ONCE IV Last administered on 07/12/17 17:33; Start 07/12/17 at 17:15; Stop 07/12/17 at 17:16; Status DC Sodium Bicarbonate 50 meq 1X ONCE IV Last administered on 07/12/17 17:33; Start 07/12/17 at 17:15; Stop 07/12/17 at 17:16; Status DC Insulin Human Regular (NovoLIN R VIAL) 10 unit 1X ONCE IV Last administered on 07/12/17 17:35; Start 07/12/17 at 17:15; Stop 07/12/17 at 17:16; Status DC Dextrose (Dextrose 50%-Water Syringe) 25 gm 1X ONCE IV Last administered on 17:33; Start 07/12/17 at 17:15; Stop 07/12/17 at 17:16; Status DC Ondansetron HCl (Zofran) 4 mg PRN Q8HRS PRN IV NAUSEA/VOMITING; Start at 17:15; Stop 07/13/17 at 17:14 Sodium Chloride 1,000 ml @ 125 mls/hr Q8H IV Last administered on 07/13/17 05:15; Start 07/12/17 at 17:14; Stop 07/13/17 at 15:00 Aspirin (Ecotrin) 81 mg DAILY PO Last administered on 07/13/17 09:06; Start 07/13/17 at 09:00 Fenofibrate (Lofibra) 134 mg QHS PO ; Start 07/12/17 at 21:00 Metformin HCl (Glucophage) 1,000 mg DAILYBFRSUP PO ; Start 07/13/17 at 17:00; Stop 07/13/17 at 17:00; Status DC Simvastatin (Zocor) 20 mg QHS PO ; Start 07/12/17 at 21:00 Acetaminophen (Tylenol) 650 mg PRN Q6HRS PRN PO PAIN; Start 07/12/17 at 20:30 Lisinopril (Prinivil) 40 mg DAILY PO Last administered on 07/13/17 09:06; Start 07/13/17 at 09:00 Active Scripts Active Lisinopril 40 Mg Tablet 1 Tab PO DAILY Reported Aspir 81 (Aspirin) 81 Mg Tablet.dr 81 Mg PO DAILY Arthritis Pain Reliever (Acetaminophen) 650 Mg Tablet.er 650 Mg PO PRN PRN [Albuterol] 2 Puff IH PRN BID PRN Metformin Hcl 500 Mg Tablet 2 Tab PO DAILYBFRSUP Simvastatin 20 Mg Tablet 1 Tab PO QHS Fenofibrate (Fenofibrate,Micronized) 134 Mg Capsule 1 Cap PO QHS Allergies Allergies: Coded Allergies: ibuprofen (Verified Allergy, Intermediate, ADVISED NOT TO TAKE BY HIS DOCTOR DUE TO KIDNEY PROBLEM, 07/23/15) ROS Review of System NONE OTHER THAN THE HEADACHE WHICH WAS IN THE OCCIPITAL AREA WITH NO ASSOCIATED SYMPTOMS AND IT HAS RESOLVED. ROS OTHERWISE COMPLETELY NORMAL Physical Exam General: Alert, Oriented X3, Cooperative, No acute distress HEENT: Atraumatic, PERRLA, EOMI, Mucous membr. moist/pink Lungs: Clear to auscultation, Normal air movement Heart: Regular rate, Normal S1, Normal S2, No murmurs Abdomen: Normal bowel sounds, No tenderness Extremities: No clubbing Skin: No rashes Neuro: Normal speech, Cranial nerves 3-12 NL Psych/Mental Status: Mental status NL, Mood NL MUSCULOSKELETAL: No deformity, No swelling Vitals VITALS Vital Signs Date Time Temp Pulse Resp B/P (MAP) Pulse Ox O2 Delivery O2 Flow Rate FiO2 07/13/17 11:00 98.2 80 18 139/78 (98) 96 Room Air 98.2 07/12/17 20:00 99.0 Labs Labs Laboratory Tests Test 07/12/17 14:26 07/12/17 16:00 07/12/17 19:35 07/13/17 05:15 Glucose (Fingerstick) 181 mg/dL (70-99) White Blood Count 6.9 x10^3/uL (4.0-11.0) Red Blood Count 4.81 x10^6/uL (4.30-5.70) Hemoglobin 14.7 g/dL (13.0-17.5) Hematocrit 43.8 % (39.0-53.0) Mean Corpuscular Volume 91 fL (79-100) Mean Corpuscular Hemoglobin 31 pg (25-35) Mean Corpuscular Hemoglobin Concent 34 g/dL (31-37) Red Cell Distribution Width 13.4 % (11.5-14.5) Platelet Count 308 x10^3/uL (140-400) Neutrophils (%) (Auto) 70 % (31-73) Lymphocytes (%) (Auto) 18 % (24-48) Monocytes (%) (Auto) 8 % (0-9) Eosinophils (%) (Auto) 3 % (0-3) Basophils (%) (Auto) 1 % (0-3) Neutrophils # (Auto) 4.8 x10^3uL (1.8-7.7) Lymphocytes # (Auto) 1.3 x10^3/uL (1.0-4.8) Monocytes # (Auto) 0.6 x10^3/uL (0.0-1.1) Eosinophils # (Auto) 0.2 x10^3/uL (0.0-0.7) Basophils # (Auto) 0.1 x10^3/uL (0.0-0.2) Segmented Neutrophils % 61 % (35-66) Band Neutrophils % 4 % (0-9) Lymphocytes % 18 % (24-48) Atypical Lymphocytes % (Manual) 1 % (0-0) Monocytes % 8 % (0-10) Eosinophils % 4 % (0-5) Basophils % 2 % (0-3) Myelocytes % 2 % (0-0) Platelet Estimate Adequate (ADEQUATE) Sodium Level 136 mmol/L (136-145) 138 mmol/L (136-145) Potassium Level 5.9 mmol/L (3.5-5.1) 4.9 mmol/L (3.5-5.1) Chloride Level 101 mmol/L (98-107) 104 mmol/L (98-107) Carbon Dioxide Level 26 mmol/L (21-32) 25 mmol/L (21-32) Anion Gap 9 (6-14) 9 (6-14) Blood Urea Nitrogen 32 mg/dL (8-26) 29 mg/dL (8-26) Creatinine 2.0 mg/dL (0.7-1.3) 1.5 mg/dL (0.7-1.3) Estimated GFR (Cockcroft-Gault) 33.5 46.7 BUN/Creatinine Ratio 16 (6-20) Glucose Level 139 mg/dL (70-99) 126 mg/dL (70-99) Calcium Level 9.6 mg/dL (8.5-10.1) 8.9 mg/dL (8.5-10.1) Total Bilirubin 0.3 mg/dL (0.2-1.0) Aspartate Amino Transf (AST/SGOT) 33 U/L (15-37) Alanine Aminotransferase (ALT/SGPT) 39 U/L (16-63) Alkaline Phosphatase 57 U/L (46-116) Troponin I Quantitative < 0.017 ng/mL (0.000-0.055) Total Protein 7.8 g/dL (6.4-8.2) Albumin 4.4 g/dL (3.4-5.0) Albumin/Globulin Ratio 1.3 (1.0-1.7) Thyroid Stimulating Hormone (TSH) 1.842 uIU/mL (0.358-3.74) Urine Collection Type Unknown Urine Color Yellow Urine Clarity Clear Urine pH 7.0 Urine Specific [place] 1.015 Urine Protein Negative mg/dL (NEG-TRACE) Urine Glucose (UA) 100 mg/dL (NEG) Urine Ketones (Stick) Negative mg/dL (NEG) Urine Blood Negative (NEG) Urine Nitrite Negative (NEG) Urine Bilirubin Negative (NEG) Urine Urobilinogen Dipstick 0.2 mg/dL (0.2 mg/dL) Urine Leukocyte Esterase Negative (NEG) Urine RBC 0 /HPF (0-2) Urine WBC Occ /HPF (0-4) Urine Squamous Epithelial Cells Few /LPF Urine Bacteria 0 /HPF (0-FEW) Urine Hyaline Casts Moderate /HPF Test 07/13/17 07:31 Glucose (Fingerstick) 211 mg/dL (70-99) Laboratory Tests Test 07/12/17 14:26 07/12/17 16:00 07/12/17 19:35 07/13/17 05:15 Glucose (Fingerstick) 181 mg/dL (70-99) White Blood Count 6.9 x10^3/uL (4.0-11.0) Red Blood Count 4.81 x10^6/uL (4.30-5.70) Hemoglobin 14.7 g/dL (13.0-17.5) Hematocrit 43.8 % (39.0-53.0) Mean Corpuscular Volume 91 fL (79-100) Mean Corpuscular Hemoglobin 31 pg (25-35) Mean Corpuscular Hemoglobin Concent 34 g/dL (31-37) Red Cell Distribution Width 13.4 % (11.5-14.5) Platelet Count 308 x10^3/uL (140-400) Neutrophils (%) (Auto) 70 % (31-73) Lymphocytes (%) (Auto) 18 % (24-48) Monocytes (%) (Auto) 8 % (0-9) Eosinophils (%) (Auto) 3 % (0-3) Basophils (%) (Auto) 1 % (0-3) Neutrophils # (Auto) 4.8 x10^3uL (1.8-7.7) Lymphocytes # (Auto) 1.3 x10^3/uL (1.0-4.8) Monocytes # (Auto) 0.6 x10^3/uL (0.0-1.1) Eosinophils # (Auto) 0.2 x10^3/uL (0.0-0.7) Basophils # (Auto) 0.1 x10^3/uL (0.0-0.2) Segmented Neutrophils % 61 % (35-66) Band Neutrophils % 4 % (0-9) Lymphocytes % 18 % (24-48) Atypical Lymphocytes % (Manual) 1 % (0-0) Monocytes % 8 % (0-10) Eosinophils % 4 % (0-5) Basophils % 2 % (0-3) Myelocytes % 2 % (0-0) Platelet Estimate Adequate (ADEQUATE) Sodium Level 136 mmol/L (136-145) 138 mmol/L (136-145) Potassium Level 5.9 mmol/L (3.5-5.1) 4.9 mmol/L (3.5-5.1) Chloride Level 101 mmol/L (98-107) 104 mmol/L (98-107) Carbon Dioxide Level 26 mmol/L (21-32) 25 mmol/L (21-32) Anion Gap 9 (6-14) 9 (6-14) Blood Urea Nitrogen 32 mg/dL (8-26) 29 mg/dL (8-26) Creatinine 2.0 mg/dL (0.7-1.3) 1.5 mg/dL (0.7-1.3) Estimated GFR (Cockcroft-Gault) 33.5 46.7 BUN/Creatinine Ratio 16 (6-20) Glucose Level 139 mg/dL (70-99) 126 mg/dL (70-99) Calcium Level 9.6 mg/dL (8.5-10.1) 8.9 mg/dL (8.5-10.1) Total Bilirubin 0.3 mg/dL (0.2-1.0) Aspartate Amino Transf (AST/SGOT) 33 U/L (15-37) Alanine Aminotransferase (ALT/SGPT) 39 U/L (16-63) Alkaline Phosphatase 57 U/L (46-116) Troponin I Quantitative < 0.017 ng/mL (0.000-0.055) Total Protein 7.8 g/dL (6.4-8.2) Albumin 4.4 g/dL (3.4-5.0) Albumin/Globulin Ratio 1.3 (1.0-1.7) Thyroid Stimulating Hormone (TSH) 1.842 uIU/mL (0.358-3.74) Urine Collection Type Unknown Urine Color Yellow Urine Clarity Clear Urine pH 7.0 Urine Specific [place] 1.015 Urine Protein Negative mg/dL (NEG-TRACE) Urine Glucose (UA) 100 mg/dL (NEG) Urine Ketones (Stick) Negative mg/dL (NEG) Urine Blood Negative (NEG) Urine Nitrite Negative (NEG) Urine Bilirubin Negative (NEG) Urine Urobilinogen Dipstick 0.2 mg/dL (0.2 mg/dL) Urine Leukocyte Esterase Negative (NEG) Urine RBC 0 /HPF (0-2) Urine WBC Occ /HPF (0-4) Urine Squamous Epithelial Cells Few /LPF Urine Bacteria 0 /HPF (0-FEW) Urine Hyaline Casts Moderate /HPF Test 07/13/17 07:31 Glucose (Fingerstick) 211 mg/dL (70-99) Assessment/Plan Assessment/Plan IMP [id number] CONTROLLED LUIZ-RESOLVED WITH IVF'S-PROB VASOMOTOR HYPERKALEMIA-RESOLVED ? NON COMPLIANCE CKD PROB STAGE 3 PLAN CR OF 1.5 IS AT HIS BASELINE OK TO D/C FROM RENAL STANDPOINT RENAL ARTERY DOPPLER IS NEG ENC HIM TO F/U OP IF HYPERKALEMIA BECOMES AN ISSUE SUGGEST USING AN ARB CYNTHIA MELO MD Jul 13, 2017 12:11
[2017-07-13] MEDS ORDERED: metFORMIN 500 MG TABLET PO SCH (17:00)
--- NOTE | 2017-07-16 13:44 | DS ---
DATE OF DISCHARGE: 07/13/2017 CHIEF COMPLAINT: Headache and malaise. HISTORY OF PRESENT ILLNESS: The patient is a 66-year-old male who presented to the Emergency Room with the above complaint. He reported the onset of symptoms on the day prior to admission. He had a feeling of malaise and fatigue and a posterior headache. He took the day off work and stayed home and rested most of the day. He took some Tylenol for his headache and this improved. He checked his blood pressure at home several times that day, it was initially quite elevated at 180/90, but then he realized he had not taken his usual lisinopril. He took his medication and when he checked his blood pressure several hours later it was in the 140s systolic. The patient woke up feeling better on the day of admission, so he went to work. He did not eat breakfast the way he normally does as he just did not have an appetite. He worked in the morning without problems, but when he sat down for lunch he began to feel lightheaded and weak. He was able to eat some of his meal, but when his symptoms persisted he came to the Emergency Room. Initial evaluation there showed him to be in acute renal failure with a BUN of 32, creatinine of 2.0 and a potassium elevated at 5.9. Treatment was initiated and he was admitted. HOSPITAL COURSE: The patient was started on IV fluids and treated for his hyperkalemia. His lab was much improved after hydration overnight with a BUN of 29 and a creatinine decreased to 1.5, which is close to his baseline with chronic kidney disease stage 3. He was seen in consultation by Dr. Thomas. Renal artery Dopplers were within normal limits and Dr. Thomas recommended continuing his usual medications and a followup in the office with him. The patient's blood pressure was controlled with his usual lisinopril. The patient's diabetes has been well controlled with metformin. The metformin was held at admission due to renal failure, but since his lab has improved he was advised to resume the metformin at home. The patient felt much better and was discharged to home. FINAL DIAGNOSES: 1. Acute renal injury with chronic kidney disease stage 3. 2. Viral illness, resolved. 3. Hypertension. 4. Diabetes mellitus type 2. 5. Asthma. DISCHARGE MEDICATIONS: Remain the same as at admission, aspirin 81 mg daily, fenofibrate 134 mg daily, lisinopril 40 mg daily, metformin 500 mg 2 tablets daily, simvastatin 20 mg daily, albuterol p.r.n. FOLLOWUP: Follow up with Dr. Mohan within 2 weeks. Follow up with Dr. Thomas as advised. KASSANDRA MOHAN MD DR: ITA/alexander JOB#: [id number] / [id number] [facility]
[2017-08-06] MEDS ORDERED: LISI40TA PO (10:31)
== END 2017-07-13 15:24 | disposition home or self-care (01) | DRG 684 ==
LOC: ER 13:58 → ED HOLD 17:14 → 6 SOUTH 21:06
PROVIDERS: ADMIT Family Medicine; ATTEND Family Medicine
DX: N17.9 Acute kidney failure, unspecified (principal); E11.22 Type 2 diabetes mellitus with diabetic chronic kidney disease; I12.9 Hypertensive chronic kidney disease with stage 1 through stage 4 chronic kidney disease, or unspecified chronic kidney disease; E87.5 Hyperkalemia; E78.00 Pure hypercholesterolemia, unspecified; E78.5 Hyperlipidemia, unspecified; E86.0 Dehydration; J45.909 Unspecified asthma, uncomplicated; N18.3 Chronic kidney disease, stage 3 (moderate); Z85.47 Personal history of malignant neoplasm of testis; Z87.442 Personal history of urinary calculi; Z87.81 Personal history of (healed) traumatic fracture; Z88.6 Allergy status to analgesic agent
CPT/HCPCS: 36415; 71010; 76770; 80048; 80053; 81001; 82962; 84443; 84484; 85007; 85025; 93005; 96374; 96375; J0610; J1815; J7030; J7042; 99285-25

== ENCOUNTER → 2017-08-03 | Outpatient (CLI) | payer OTHER, MEDICARE ==
[2017-07-13 11:00] VITALS: BP 139/78
[~2017-08-03] MED LIST changes: +LISI40TA PO
--- NOTE | 2017-08-03 09:47 | RAD ---
CT of the chest, abdomen, and pelvis without contrast 08/03/2017 Indication: History of testicular cancer Comparison study: CT of the chest, abdomen, and pelvis August 01, 2016 Technique: Multidetector CT imaging of the chest, abdomen, and pelvis was performed without the administration of intravenous contrast. Findings: Heart size is normal. No pericardial effusion is identified. No mediastinal adenopathy is seen. Mild coronary calcification is similar to prior study. Ectasia of the descending thoracic aorta to 3.7 cm is unchanged. There is no pneumothorax or pleural effusion. No acute appearing infiltrates are identified. No acute abnormalities involving the solid viscera of the abdomen are identified. Right renal cyst is similar in appearance to comparison study. Minimal nonspecific perinephric stranding is similar to prior exams. Punctate nonobstructing stones in the inferior left kidney are also grossly stable. There is no bowel obstruction. No evidence of acute inflammatory change involving the bowel is identified. No free fluid or free air is identified in the abdomen or pelvis. No evidence of acute osseous abnormality is identified. Impression: No evidence of acute cardiopulmonary or intra-abdominal abnormality. No acute changes from prior exam are identified.
== END | disposition home or self-care (01) ==
LOC: CT 07:47
PROVIDERS: ATTEND Radiology Radiation Oncology
DX: C62.90 Malignant neoplasm of unspecified testis, unspecified whether descended or undescended (principal); N28.1 Cyst of kidney, acquired
CPT/HCPCS: 71250; 74176

== ENCOUNTER 2018-01-08 00:24 | Emergency (ER) | payer OTHER, MEDICARE ==
[2018-01-08] MEDS: oxyCODONE/APAP 10/325 1 TAB TABLET PO (01:43)
[2018-01-08] MEDS: ORPHENADRINE CITRATE 60 MG/2 ML VIAL. IM (01:43)
== END 2018-01-08 02:07 | disposition home or self-care (01) ==
LOC: ER 00:24
DX: M54.5 Low back pain (principal); E78.00 Pure hypercholesterolemia, unspecified; I10 Essential (primary) hypertension; J45.909 Unspecified asthma, uncomplicated; Z88.6 Allergy status to analgesic agent
CPT/HCPCS: 72100; 96372; 99284; J2360

== ENCOUNTER 2018-01-08 10:58 | Emergency (ER) | payer OTHER, MEDICARE | END 2018-01-08 14:00 | disposition home or self-care (01) | LOC: ER 10:58 | DX: S32.019A Unspecified fracture of first lumbar vertebra, initial encounter for closed fracture (principal); E78.00 Pure hypercholesterolemia, unspecified; I10 Essential (primary) hypertension; J45.909 Unspecified asthma, uncomplicated; Z88.8 Allergy status to other drugs, medicaments and biological substances; X58.XXXA Exposure to other specified factors, initial encounter; Y93.89 Activity, other specified; Y92.89 Other specified places as the place of occurrence of the external cause; Y99.8 Other external cause status | CPT/HCPCS: 99283 ==

== ENCOUNTER → 2018-03-12 | Outpatient (CLI) | payer OTHER ==
[~2018-03-12] MED LIST changes: -ACET650T10 PO; -ALBUTEROL IH; -ASPI-482 PO; -CEPH-264 PO; +CONTRAST GIVEN. MC; -FENO134C PO; +IOHEXOL 240 MG/ML 50ML VIAL. PO; -LISI-334 PO; -LISI40TA PO; -METF500T4 PO; -OXYC-327 PO; -PROC10TA57 PO; -SIMV20TA3 PO
== END | disposition home or self-care (01) ==
LOC: CT 08:14
DX: Z12.89 Encounter for screening for malignant neoplasm of other sites (principal); I70.0 Atherosclerosis of aorta; M48.56XA Collapsed vertebra, not elsewhere classified, lumbar region, initial encounter for fracture; I12.9 Hypertensive chronic kidney disease with stage 1 through stage 4 chronic kidney disease, or unspecified chronic kidney disease; E11.22 Type 2 diabetes mellitus with diabetic chronic kidney disease; N18.3 Chronic kidney disease, stage 3 (moderate); Z85.47 Personal history of malignant neoplasm of testis
CPT/HCPCS: 74176; Q9966

== ENCOUNTER 2018-07-07 08:04 | Emergency (ER) | payer MEDICARE ==
[~2018-07-07] VITALS: Ht 175.3 cm; Wt 94.8 kg
[~2018-07-07 08:04] MED LIST changes: +ACET650T10 PO; +ALBUTEROL IH; +ASPI-482 PO; +CEPH-264 PO; -CONTRAST GIVEN. MC; +CYCL10TA2 PO; +FENO134C PO; +FENO200C PO; +HYDR-971 PO; -IOHEXOL 240 MG/ML 50ML VIAL. PO; +LISI-130 PO; +LISI-334 PO; +METF500T16 PO; +OXYC-327 PO; +PROC10TA57 PO; +SIMV20TA3 PO
--- NOTE | 2018-07-07 08:30 | PHYS DOC ---
Past Medical History Past Medical History: Asthma, Cancer, High Cholesterol, Hypertension, Other Additional Past Medical Histor: CHRONIC TINNITUS R/T NERVE DAMAGE,TESTICULAR CA W/ RADIATION [place] Past Surgical History: Other Additional Past Surgical Histo: testical removal Alcohol Use: None Drug Use: None Adult General Chief Complaint Chief Complaint: FLANK PAIN HPI HPI 67-year-old male presents to ER via POV with complaints of 3 day history of left flank pain. Patient was seen at urgent care yesterday and had a urinalysis which was per Isatu unremarkable no blood or infection. He reports pain increases with movement and is dull in nature. Patient reports he's been taking his arthritis Tylenol as needed for the pain. Patient denies any dysuria or hematuria. Patient reports he has had regular appetite with intermittent nausea. Patient denies any vomiting or diarrhea episodes. Patient reports he has been urinating without difficulty. Pt denies fever. Pt reports hx of renal issues w/kidney stones. Pt's reports they are mainly concerned on renal function. Pt denies any heavy lifting prior to onset of sxs. Pt did have URI prior to sxs with freq. cough. Pt reports those sxs have improved. Review of Systems Review of Systems Constitutional: Denies fever or chills [] Eyes: Denies change in visual acuity, redness, or eye pain [] HENT: Denies nasal congestion or sore throat [] Respiratory: Denies cough or shortness of breath [] Cardiovascular: No additional information not addressed in HPI [] GI: Denies abdominal pain, nausea, vomiting, bloody stools or diarrhea [] : Denies dysuria or hematuria. Denies scrotal/testicular pain or swelling. Denies discharge Musculoskeletal: Denies joint pain. Reports lt flank pain which radiates across lower back [] Integument: Denies rash, swelling or skin lesions [] Neurologic: Denies headache, focal weakness or sensory changes [] All other systems were reviewed and found to be within normal limits, except as documented in this note. Current Medications Current Medications Current Medications Medications (Trade) Dose Ordered Sig/Alicia Start Time Stop Time Status Last Admin Dose Admin Fentanyl Citrate (Fentanyl 2ml Vial) 25 mcg 1X ONCE 07/07/18 08:45 07/07/18 08:46 DC 07/07/18 08:47 25 MCG Ondansetron HCl (Zofran) 4 mg 1X ONCE 07/07/18 08:45 07/07/18 08:46 DC 07/07/18 08:46 4 MG Allergies Allergies Allergies Coded Allergies Type Severity Reaction Last Updated Verified ibuprofen Allergy Intermediate ADVISED NOT TO TAKE BY HIS DOCTOR DUE TO KIDNEY PROBLEM 07/23/15 Yes Physical Exam Physical Exam Constitutional: Well developed, well nourished, no acute distress, non-toxic appearance. [] HENT: Normocephalic, atraumatic, oropharynx moist, no oral exudates, nose normal. [] Eyes: Conjunctiva normal, no discharge. [] Neck: Normal range of motion, no tenderness, supple, no stridor. [] Cardiovascular:Heart rate regular rhythm, no murmur [] Lungs & Thorax: Bilateral breath sounds clear to auscultation [] Abdomen: Bowel sounds normal, soft- no distention/rigidity, no tenderness, no masses, no pulsatile masses. [] Skin: Warm, dry, no erythema, no rash. [] Back: No tenderness, Lt side CVA tenderness with tenderness extending across lower back- does have tenderness mid lumbar spine- no palp. deformity/swelling. No rt side CVA tenderness Extremities: No tenderness, no cyanosis, no clubbing, ROM intact, no edema. [] Neurologic: Alert and oriented X 3, normal motor function, normal sensory function, no focal deficits noted. [] Psychologic: Affect normal, judgement normal, mood normal. [] Current Patient Data Vital Signs Vital Signs Date Time Temp Pulse Resp B/P (MAP) Pulse Ox O2 Delivery O2 Flow Rate FiO2 07/07/18 10:00 62 12 129/70 (89) 97 Room Air 07/07/18 08:08 97.4 97.4 Lab Values Laboratory Tests Test 07/07/18 08:22 White Blood Count 4.9 x10^3/uL (4.0-11.0) Red Blood Count 4.48 x10^6/uL (4.30-5.70) Hemoglobin 13.7 g/dL (13.0-17.5) Hematocrit 41.0 % (39.0-53.0) Mean Corpuscular Volume 92 fL (79-100) Mean Corpuscular Hemoglobin 31 pg (25-35) Mean Corpuscular Hemoglobin Concent 33 g/dL (31-37) Red Cell Distribution Width 13.0 % (11.5-14.5) Platelet Count 289 x10^3/uL (140-400) Neutrophils (%) (Auto) 58 % (31-73) Lymphocytes (%) (Auto) 27 % (24-48) Monocytes (%) (Auto) 10 % (0-9) H Eosinophils (%) (Auto) 4 % (0-3) H Basophils (%) (Auto) 1 % (0-3) Neutrophils # (Auto) 2.8 x10^3uL (1.8-7.7) Lymphocytes # (Auto) 1.3 x10^3/uL (1.0-4.8) Monocytes # (Auto) 0.5 x10^3/uL (0.0-1.1) Eosinophils # (Auto) 0.2 x10^3/uL (0.0-0.7) Basophils # (Auto) 0.0 x10^3/uL (0.0-0.2) Segmented Neutrophils % 55 % (35-66) Lymphocytes % 34 % (24-48) Atypical Lymphocytes % (Manual) 2 % (0-0) H Monocytes % 6 % (0-10) Eosinophils % 3 % (0-5) Platelet Estimate Adequate (ADEQUATE) Large Platelets Occ Urine Collection Type Unknown Urine Color Yellow Urine Clarity Clear Urine pH 5.0 Urine Specific [place] 1.020 Urine Protein Negative mg/dL (NEG-TRACE) Urine Glucose (UA) Negative mg/dL (NEG) Urine Ketones (Stick) Negative mg/dL (NEG) Urine Blood Negative (NEG) Urine Nitrite Negative (NEG) Urine Bilirubin Negative (NEG) Urine Urobilinogen Dipstick 0.2 mg/dL (0.2 mg/dL) Urine Leukocyte Esterase Negative (NEG) Urine RBC 0 /HPF (0-2) Urine WBC 1-4 /HPF (0-4) Urine Squamous Epithelial Cells Occ /LPF Urine Bacteria Few /HPF (0-FEW) Urine Hyaline Casts Occasional /HPF Urine Mucus Slight /LPF Sodium Level 137 mmol/L (136-145) Potassium Level 4.8 mmol/L (3.5-5.1) Chloride Level 101 mmol/L (98-107) Carbon Dioxide Level 26 mmol/L (21-32) Anion Gap 10 (6-14) Blood Urea Nitrogen 23 mg/dL (8-26) Creatinine 1.5 mg/dL (0.7-1.3) H Estimated GFR (Cockcroft-Gault) 46.5 BUN/Creatinine Ratio 15 (6-20) Glucose Level 128 mg/dL (70-99) H Calcium Level 9.3 mg/dL (8.5-10.1) Total Bilirubin 0.3 mg/dL (0.2-1.0) Aspartate Amino Transferase (AST) 22 U/L (15-37) Alanine Aminotransferase (ALT) 33 U/L (16-63) Alkaline Phosphatase 54 U/L (46-116) Total Protein 7.5 g/dL (6.4-8.2) Albumin 4.1 g/dL (3.4-5.0) Albumin/Globulin Ratio 1.2 (1.0-1.7) Laboratory Tests 07/07/18 08:22 Laboratory Tests 07/07/18 08:22 EKG EKG [] Radiology/Procedures Radiology/Procedures PROCEDURE: CT ABDOMEN PELVIS WO CONTRAST ADDENDUM Addendum: There is a 1 cm exophytic cystic structure identified in the left kidney similar to prior exam could be a cyst or cystic lesion. Electronically signed by: Sedrick Tripathi MD (07/07/2018 9:25 AM) [facility] DICTATED AND SIGNED BY: SEDRICK TRIPATHI MD DATE: 07/07/18924 CC: KASSANDRA MOHAN MD; VALARIE STEIN APRN ~ Examination: CT of the abdomen pelvis without contrast HISTORY: History of severe left flank pain COMPARISON: 03/12/2018 TECHNIQUE: Axial CT images of the abdomen pelvis were performed without contrast. Coronal and sagittal reformats performed Exposure: One or more of the following individualized dose reduction techniques were utilized for this examination: 1. Automated exposure control 2. Adjustment of the mA and/or kV according to patient size 3. Use of iterative reconstruction technique FINDINGS: Minimal bibasilar lung atelectasis. No evidence of free air identified in the abdomen. The evaluation of the solid organs is limited due to lack of IV contrast. The evaluation of bowel is limited due to lack of oral contrast. There is mild decreased attenuation noted in the liver likely hepatic steatosis. The visualized noncontrasted spleen, adrenals grossly appears unremarkable. The gallbladder is mildly distended. The stomach is mildly distended. The visualized pancreas grossly appears unremarkable. The small bowel is nondilated. The appendix is normal. Feces and gas noted in the colon. The urinary bladder is mildly distended. Punctate intrarenal collecting system calculi identified in the bilateral kidneys with the largest measuring 3 mm in the left kidney. There is minimal fat stranding identified about the left kidney and the left ureter. An obvious radiopaque ureteral calculus is not identified. No evidence of hydronephrosis. Cystic structure identified in the right kidney measuring 2.5 cm likely a cyst. Urinary bladder is mildly distended. Mild aortic atherosclerosis. There is a sclerotic density identified in the head of the left femur likely avascular necrosis similar to prior exam. Mild compression change of L1 vertebral body similar to prior exam. IMPRESSION: 1. Punctate intrarenal collecting system calculi identified in the left kidney with largest measuring 3 mm. There is minimal fat stranding identified about the left kidney and the left ureter. Underlying pyelonephritis is not completely excluded. Correlate with urine analysis. 2. A 2.5 cm cystic structure identified in the right kidney could be a cyst or cystic lesion is unchanged. 3. Unchanged mild compression change of L1 vertebral body. 4. Mild hepatic steatosis. 5. 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 Electronically signed by: Sedrick Tripathi MD (07/07/2018 9:15 AM) [facility] DICTATED and SIGNED BY: SEDRICK TRIPATHI MD DATE: 07/07/18 0906 PROCEDURE: CT LUMBAR SPINE RECONSTRUCTION Examination: CT lumbar spine without contrast HISTORY: History of mid low back pain COMPARISON: CT abdomen pelvis from 03/12/2018 TECHNIQUE: Axial CT images of the lumbar spine was performed without contrast. Coronal and sagittal reformats are performed Exposure: One or more of the following individualized dose reduction techniques were utilized for this examination: 1. Automated exposure control 2. Adjustment of the mA and/or kV according to patient size 3. Use of iterative reconstruction technique FINDINGS: There is mild to moderate compression fracture of L1 vertebral body similar to prior exam. No evidence of listhesis. The bilateral facets are well aligned. Mild intervertebral disc height loss identified throughout the lumbar spine. L1-L2: Mild disc bulge identified at this level causing mild spinal canal stenosis and mild bilateral neural foraminal narrowing. L2-L3: Diffuse disc bulge causing moderate spinal canal stenosis and mild bilateral neural foraminal narrowing left greater than right. L3-L4: Diffuse disc bulge identified at this level causing moderate spinal canal stenosis. Moderate left, mild right neural foraminal narrowing. L4-L5: Diffuse disc bulge causing moderate spinal canal stenosis. There is moderate bilateral neural foraminal narrowing. L5-S1: Mild diffuse disc bulge causing [id number] spinal canal stenosis. Mild right, moderate left neural foraminal narrowing. Partially visualized intrarenal collecting system calculi left kidney. Partially visualized cystic structure identified in the right kidney measuring 2.5 cm and small exophytic cystic structure identified in the left kidney measuring 1 cm similar to prior exam. IMPRESSION: 1. Mild to moderate compression change of L1 vertebral body similar to prior exam. 2. Moderate multilevel degenerative changes lumbar spine as described above. Electronically signed by: Sedrick Tripathi MD (07/07/2018 9:24 AM) [facility] DICTATED and SIGNED BY: SEDRICK TRIPATHI MD DATE: 07/07/18 0918 Course & Med Decision Making Course & Med Decision Making Pertinent Labs and Imaging studies reviewed. (See chart for details) 0942: Discussed test results with patient and his with no acute findings for hydronephrosis/obstructing stone and lumbar CT with no acute findings for additional compression fxs- reports with similar findings when imaging compared to previous in pt's records. Labs unremarkable with Cr 1.5 which is similar to previous in records. UA neg. for blood/leuks/nitrates. Patient reports following dose of Zofran and fentanyl his symptoms have improved. Discussed home discharge plan patient to follow-up with his primary care physician in next 2-3 days if symptoms persist- pt and his both comfortable with home discharge plan as discussed. Offered prescription for pain medicine and patient reports pain has been tolerable and is preferring no prescriptions. Pt also plans to f/u with his urologist. Discussed possibility pain musculoskeletal vs renal as pain is reproducible with movement/palp. of lower back. Dragon Disclaimer Dragon Disclaimer This electronic medical record was generated, in whole or in part, using a voice recognition dictation system. Departure Departure Impression: Primary Impression: Left flank pain Additional Impression: Back pain Disposition: 01 HOME, SELF-CARE Condition: STABLE Referrals: KASSANDRA MOHAN MD (PCP) Patient Instructions: Back Pain, Adult, Flank Pain Additional Instructions: As discussed continue home medications as previously taken. Ice and heat compress to affected area every 3-4 hours for 20-30 minutes at a time. Avoid direct contact of skin with ice. If symptoms persist follow-up with primary care physician in next 2-3 days for reevaluation sooner with any concerns. Problem Qualifiers VALARIE STEIN APRN Jul 07, 2018 08:30
[2018-07-07 08:32] LABS: BILIRUBIN,URINE NEGATIVE (NEG); CLARITY,URINE CLEAR; COLOR,URINE YELLOW; NITRITE,URINE NEGATIVE (NEG); PROTEIN,URINE NEGATIVE (NEG-TRACE); UROBILINOGEN,URINE 0.2 mg/dL (0.2 mg/dL)
[2018-07-07 08:33] LABS: BASO % 1 % (0-3); EOS # 0.2 x10^3/uL (0.0-0.7); EOS % 4 % (0-3); HEMOGLOBIN 13.7 g/dL (13.0-17.5); LYMPH # 1.3 x10^3/uL (1.0-4.8); LYMPH % 27 % (24-48); MEAN CORPUSCULAR HEMOGLOBIN 31 pg (25-35); MEAN CORPUSCULAR HGB CONC 33 g/dL (31-37); MEAN CORPUSCULAR VOLUME 92 fL (79-100); MONO # 0.5 x10^3/uL (0.0-1.1); MONO % 10 % (0-9); NEUT # 2.8 x10^3uL (1.8-7.7); NEUT % 58 % (31-73); PLATELET COUNT 289 x10^3/uL (140-400); RED BLOOD COUNT 4.48 x10^6/uL (4.30-5.70); WHITE BLOOD COUNT 4.9 x10^3/uL (4.0-11.0)
[2018-07-07 08:40] LABS: CALCIUM 9.3 mg/dL (8.5-10.1); CREATININE 1.5 mg/dL (0.7-1.3); GFR 46.5; POTASSIUM 4.8 mmol/L (3.5-5.1)
[2018-07-07] MEDS ORDERED: ONDANSETRON PF 4 MG/2 ML VIAL. IV ONE (08:45)
[2018-07-07] MEDS ORDERED: fentaNYL PF VIAL 100 MCG/2 ML VIAL IV ONE (08:45)
[2018-07-07 08:46] LABS: ALBUMIN 4.1 g/dL (3.4-5.0); ALBUMIN/GLOBULIN RATIO 1.2 (1.0-1.7); TOTAL BILIRUBIN 0.3 mg/dL (0.2-1.0); TOTAL PROTEIN 7.5 g/dL (6.4-8.2)
[2018-07-07 08:47] LABS: SQUAMOUS EPITHELIAL CELL,UR OCC /LPF
[2018-07-07 08:48] LABS: BACTERIA,URINE FEW /HPF (0-FEW); HYALINE CASTS, URINE OCCASIONAL /HPF; RBC,URINE 0 /HPF (0-2)
--- NOTE | 2018-07-07 09:19 | RAD ---
Examination: CT of the abdomen pelvis without contrast HISTORY: History of severe left flank pain COMPARISON: 03/12/2018 TECHNIQUE: Axial CT images of the abdomen pelvis were performed without contrast. Coronal and sagittal reformats performed Exposure: One or more of the following individualized dose reduction techniques were utilized for this examination: 1. Automated exposure control 2. Adjustment of the mA and/or kV according to patient size 3. Use of iterative reconstruction technique FINDINGS: Minimal bibasilar lung atelectasis. No evidence of free air identified in the abdomen. The evaluation of the solid organs is limited due to lack of IV contrast. The evaluation of bowel is limited due to lack of oral contrast. There is mild decreased attenuation noted in the liver likely hepatic steatosis. The visualized noncontrasted spleen, adrenals grossly appears unremarkable. The gallbladder is mildly distended. The stomach is mildly distended. The visualized pancreas grossly appears unremarkable. The small bowel is nondilated. The appendix is normal. Feces and gas noted in the colon. The urinary bladder is mildly distended. Punctate intrarenal collecting system calculi identified in the bilateral kidneys with the largest measuring 3 mm in the left kidney. There is minimal fat stranding identified about the left kidney and the left ureter. An obvious radiopaque ureteral calculus is not identified. No evidence of hydronephrosis. Cystic structure identified in the right kidney measuring 2.5 cm likely a cyst. Urinary bladder is mildly distended. Mild aortic atherosclerosis. There is a sclerotic density identified in the head of the left femur likely avascular necrosis similar to prior exam. Mild compression change of L1 vertebral body similar to prior exam. IMPRESSION: 1. Punctate intrarenal collecting system calculi identified in the left kidney with largest measuring 3 mm. There is minimal fat stranding identified about the left kidney and the left ureter. Underlying pyelonephritis is not completely excluded. Correlate with urine analysis. 2. A 2.5 cm cystic structure identified in the right kidney could be a cyst or cystic lesion is unchanged. 3. Unchanged mild compression change of L1 vertebral body. 4. Mild hepatic steatosis. 5. 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 Electronically signed by: Sedrick Tripathi MD (07/07/2018 9:15 AM) [facility]
--- NOTE | 2018-07-07 09:28 | RAD ---
Examination: CT lumbar spine without contrast HISTORY: History of mid low back pain COMPARISON: CT abdomen pelvis from 03/12/2018 TECHNIQUE: Axial CT images of the lumbar spine was performed without contrast. Coronal and sagittal reformats are performed Exposure: One or more of the following individualized dose reduction techniques were utilized for this examination: 1. Automated exposure control 2. Adjustment of the mA and/or kV according to patient size 3. Use of iterative reconstruction technique FINDINGS: There is mild to moderate compression fracture of L1 vertebral body similar to prior exam. No evidence of listhesis. The bilateral facets are well aligned. Mild intervertebral disc height loss identified throughout the lumbar spine. L1-L2: Mild disc bulge identified at this level causing mild spinal canal stenosis and mild bilateral neural foraminal narrowing. L2-L3: Diffuse disc bulge causing moderate spinal canal stenosis and mild bilateral neural foraminal narrowing left greater than right. L3-L4: Diffuse disc bulge identified at this level causing moderate spinal canal stenosis. Moderate left, mild right neural foraminal narrowing. L4-L5: Diffuse disc bulge causing moderate spinal canal stenosis. There is moderate bilateral neural foraminal narrowing. L5-S1: Mild diffuse disc bulge causing [id number] spinal canal stenosis. Mild right, moderate left neural foraminal narrowing. Partially visualized intrarenal collecting system calculi left kidney. Partially visualized cystic structure identified in the right kidney measuring 2.5 cm and small exophytic cystic structure identified in the left kidney measuring 1 cm similar to prior exam. IMPRESSION: 1. Mild to moderate compression change of L1 vertebral body similar to prior exam. 2. Moderate multilevel degenerative changes lumbar spine as described above. Electronically signed by: Sedrick Tripathi MD (07/07/2018 9:24 AM) [facility]
[2018-07-07 10:00] VITALS: BP 129/70
[2018-07-07 10:16] LABS: % ATYL 2 % (0-0); % EOS 3 % (0-5); % LYMPHS 34 % (24-48); % MONOS 6 % (0-10); % SEGS 55 % (35-66); PLT ESTIMATE ADEQUATE (ADEQUATE)
== END 2018-07-07 10:08 | disposition home or self-care (01) ==
LOC: ER 08:04
DX: R10.9 Unspecified abdominal pain (principal); M54.5 Low back pain; M48.061 Spinal stenosis, lumbar region without neurogenic claudication; K76.0 Fatty (change of) liver, not elsewhere classified; R11.0 Nausea; J45.909 Unspecified asthma, uncomplicated; E78.00 Pure hypercholesterolemia, unspecified; I10 Essential (primary) hypertension; Z87.442 Personal history of urinary calculi; Z88.6 Allergy status to analgesic agent
CPT/HCPCS: 36415; 74176; 80053; 81001; 85007; 85025; 96374; 96375; 99285; J2405; J3010

== ENCOUNTER → 2018-09-12 | Outpatient (CLI) | payer MEDICARE ==
[~2018-09-12] MED LIST changes: +HYDR-3164 PO; -HYDR-971 PO; +LIDOCAINE 1% Multi-Dose 20 ML VIAL. INJ ONE; -OXYC-327 PO; +OXYC1TAB19 PO; +methylPREDNISolone ACETATE 40 MG/ML VIAL. IM ONE
--- NOTE | 2018-09-13 11:30 | KCIC ---
Examination: Examination: Ultrasound-guided left proximal biceps tendon sheath injection HISTORY: History of biceps tendinitis graft comparison: None available TECHNIQUE: Patient was brought to the ultrasound suite. Patient was explained the procedure. Informed consent was obtained after explaining the risks and benefits to the patient. The region was marked. A timeout was performed. Local anesthesia was achieved with 1% lidocaine. Under ultrasound guidance a 25-gauge needle was advanced into the biceps tendon sheath taking care not to enter the biceps tendon substance. The tip of the needle was placed superficial to the biceps tendon within the bicipital tendon sheath and 1 mL L4 Kenalog was injected without complication. The needle was removed. No immediate complications. IMPRESSION: Successful ultrasound-guided biceps tendon sheath injection. Electronically signed by: Sedrick Tripathi MD (09/13/2018 11:26 AM) [id number]
== END | disposition home or self-care (01) ==
LOC: KCIC US 14:16
PROVIDERS: ATTEND Nurse Practitioner Gerontology
DX: M75.22 Bicipital tendinitis, left shoulder (principal); J45.909 Unspecified asthma, uncomplicated; I12.9 Hypertensive chronic kidney disease with stage 1 through stage 4 chronic kidney disease, or unspecified chronic kidney disease; E11.22 Type 2 diabetes mellitus with diabetic chronic kidney disease; N18.3 Chronic kidney disease, stage 3 (moderate); Z88.8 Allergy status to other drugs, medicaments and biological substances; Z79.01 Long term (current) use of anticoagulants; Z79.84 Long term (current) use of oral hypoglycemic drugs
CPT/HCPCS: 20550; 20611; 76942

== ENCOUNTER → 2018-09-19 | Outpatient (CLI) | payer MEDICARE ==
[~2018-09-19] MED LIST changes: +ALBU2.5V14 NEB; -LIDOCAINE 1% Multi-Dose 20 ML VIAL. INJ ONE; -methylPREDNISolone ACETATE 40 MG/ML VIAL. IM ONE
--- NOTE | 2018-09-19 10:27 | RAD ---
PQRS Compliance Statement: One or more of the following individualized dose reduction techniques were utilized for this examination: 1. Automated exposure control 2. Adjustment of the mA and/or kV according to patient size 3. Use of iterative reconstruction technique CT CHEST ABDOMEN PELVIS WO Clinical Indication: STAGE 3 TESTICULAR CA Comparison: CT abdomen and pelvis without contrast, July 07, 2018. CT chest abdomen and pelvis without contrast, August 03, 2017. Technique: Helical CT imaging of the chest, abdomen and pelvis is performed without IV or oral contrast. Findings: No mediastinal adenopathy. Mild ectasia of the ascending thoracic aorta. There is coronary artery disease. Cardiac size normal. No pericardial effusion. The central airways are patent. Minimal scarring in the inferior lingula is stable. Lungs otherwise clear. No pulmonary nodule. No pleural abnormality. There is mild fatty infiltration of the liver. Focal fatty sparing along the gallbladder fossa. The gallbladder, spleen, pancreas, adrenal glands, and abdominal aorta are normal. There is bilateral perinephric stranding, can be normal variant in a patient of this age or due to renal insufficiency. Tiny nonobstructing left renal calculi versus cortical calcifications are stable. Right upper pole renal cyst is stable. Partially exophytic 11 mm cyst of the posterior lower pole of the left kidney is stable. The ureters are normal. The stomach is unremarkable. There is no dilated small bowel. The appendix is normal caliber, not well seen. There is no colon wall thickening. No abdominal adenopathy or free fluid. The urinary bladder is mostly decompressed. Prostate and seminal vesicles are normal. Small fat-containing right inguinal hernia. There is no inguinal adenopathy. There is no retroperitoneal adenopathy. There is a stable enlarged left external iliac lymph node. Short axis diameter 1.7 cm. There is stable old compression fracture at the superior endplate of L1. Redemonstrated findings of osteonecrosis of the bilateral femoral heads. There is no femoral head deformity. IMPRESSION: 1. There is a stable enlarged left external iliac lymph node. No other adenopathy is seen. 2. No evidence of metastatic disease in the chest. 3. Mild fatty infiltration of the liver. 4. Stable bilateral renal cysts. Electronically signed by: Marco Wetzel MD (09/19/2018 10:23 AM) [id number]
== END | disposition home or self-care (01) ==
LOC: CT 08:23
PROVIDERS: ATTEND Radiology Radiation Oncology
DX: K76.0 Fatty (change of) liver, not elsewhere classified (principal); N28.1 Cyst of kidney, acquired; M48.56XD Collapsed vertebra, not elsewhere classified, lumbar region, subsequent encounter for fracture with routine healing; M87.852 Other osteonecrosis, left femur; M87.851 Other osteonecrosis, right femur; K40.90 Unilateral inguinal hernia, without obstruction or gangrene, not specified as recurrent; R59.0 Localized enlarged lymph nodes; I25.10 Atherosclerotic heart disease of native coronary artery without angina pectoris; I77.810 Thoracic aortic ectasia; Z85.47 Personal history of malignant neoplasm of testis
CPT/HCPCS: 71250; 74176

== ENCOUNTER → 2019-05-13 | Outpatient (CLI) | payer MEDICARE ==
[~2019-05-13] MED LIST changes: +CONTRAST GIVEN. MC PRN; +IOHEXOL 240 MG/ML 50ML VIAL. PO ONE
--- NOTE | 2019-05-13 14:06 | RAD ---
EXAM: CT Abdomen and Pelvis without IV contrast CLINICAL HISTORY: History of testicular cancer. COMPARISON: none TECHNIQUE: Helical CT of the abdomen and pelvis without intravenous contrast. Axial, coronal and sagittal reformatted images were generated. PQRS compliance statement - One or more of the following individualized dose reduction techniques were utilized for this study: 1. Automated exposure control 2. Adjustment of the mA and/or kV according to patient size 3. Use of iterative reconstruction technique FINDINGS: Lack of intravenous contrast limits evaluation of solid organs, vasculature, and lymph nodes. Lower chest: Lung bases are clear. Abdomen and Pelvis: Diffuse hepatic hypoattenuation consistent with hepatic steatosis with focal fatty sparing at the gallbladder fossa. Gallbladder is normal. No biliary ductal dilatation. Spleen is unremarkable. Adrenal glands are normal. Pancreas is unremarkable. Right interpolar renal cystic lesion is seen. Mildly exophytic left lower pole renal cystic lesion is seen. Nonobstructing left lower pole renal calculus. No hydronephrosis or hydroureter. Bladder is unremarkable. Appendix is not seen. Moderate colonic stool content is seen. No small or large bowel dilatation. No evidence of bowel obstruction. No abdominal or pelvic ascites. Left external iliac chain lymph node measures 1.3 cm short axis, previously 1.6 cm when measured in similar fashion. Otherwise, no abdominal or pelvic lymphadenopathy. Bones: Degenerative changes of the hips and back. Stable height loss of the L1 vertebral body. Bilateral femoral head osteonecrosis with trace collapse left femoral head, grossly stable. IMPRESSION: 1. Stable to borderline decrease in size of the left external iliac chain lymph node. No new abdominal or pelvic lymphadenopathy. 2. Hepatic steatosis. 3. Renal cystic lesions are again seen. Nonobstructing left lower pole renal calculus. Electronically signed by: Derek Tierney MD (05/13/2019 2:03 PM) [facility]
== END | disposition home or self-care (01) ==
LOC: CT 08:34
PROVIDERS: ATTEND Radiology Radiation Oncology
DX: C62.12 Malignant neoplasm of descended left testis (principal); K76.0 Fatty (change of) liver, not elsewhere classified; N20.0 Calculus of kidney; N28.89 Other specified disorders of kidney and ureter; M87.9 Osteonecrosis, unspecified
CPT/HCPCS: 74176; Q9966

== ENCOUNTER → 2020-02-03 | Outpatient (CLI) | payer MEDICARE ==
[~2020-02-03] MED LIST changes: -CONTRAST GIVEN. MC PRN; +SIMV20TA18 PO; -SIMV20TA3 PO
--- NOTE | 2020-02-03 13:43 | RAD ---
Examination: CT ABD PEL W/ORAL CONTRST ONLY History: Reason: PRIMARY SEMINOMA OF LEFT TESTIS Comparison/Correlation: 05/13/2019 CT abdomen and pelvis without contrast Findings: Axial images of the abdomen and pelvis were obtained following oral contrast. IV contrast was not administered. Sagittal and coronal reformatted images were provided. Visualized lung bases are clear. Punctate calculi are suspected within the gallbladder. Small hiatal hernia is noted. Fatty infiltration of the liver is present. Spleen is unremarkable. Pancreas is normal. Adrenal glands are normal. Bilateral renal simple cysts are stable. Minimal curvilinear cortical calcification involves the left renal lower pole. No radiopaque collecting system calculi or evidence of obstruction. Moderate quantity of stool is noted in the colon. No inflammatory change about the cecum. Appendix is normal. Left external iliac lymph node measuring 1.9 cm x 0.9 cm is similar to the previous exam. Absence of the left sclerotic cord and the left testicle is noted. L1 vertebral body compression fracture deformity is again seen. Impression: No significant change involving the left external iliac chain lymph node. No new enlarged lymph nodes. Fatty infiltration of the liver. Cholelithiasis suspected. Small hiatal hernia. PQRS Compliance Statement: One or more of the following individualized dose reduction techniques were utilized for this examination: 1. Automated exposure control 2. Adjustment of the mA and/or kV according to patient size 3. Use of iterative reconstruction technique Electronically signed by: Adonay Zhang MD (02/03/2020 1:40 PM) [id number]
== END ==
LOC: CT 11:21
PROVIDERS: ATTEND Radiology Radiation Oncology
DX: C62.12 Malignant neoplasm of descended left testis (principal); K76.0 Fatty (change of) liver, not elsewhere classified; K44.9 Diaphragmatic hernia without obstruction or gangrene; Z90.79 Acquired absence of other genital organ(s)
CPT/HCPCS: 74176; Q9966

== ENCOUNTER 2021-08-17 05:09 | Emergency (ER) | payer MEDICARE ==
[~2021-08-17] VITALS: Ht 175.3 cm; Wt 91.8 kg
[~2021-08-17 05:09] MED LIST changes: +CYCL10TA19 PO; -CYCL10TA2 PO; -FENO200C PO; +FENO200C27 PO; -IOHEXOL 240 MG/ML 50ML VIAL. PO ONE; -LISI-334 PO; +LISI20TA18 PO
--- NOTE | 2021-08-17 06:41 | PHYS DOC ---
Past Medical History Past Medical History: Asthma, Cancer, Diabetes-Type II, High Cholesterol, Hypertension, Other Additional Past Medical Histor: tinnitus,TESTICULAR CA W/ RADIATION [place] Past Surgical History: Other Additional Past Surgical Histo: L testicle removal, nasla reconstruction,kidney stone removal Smoking Status: Never Smoker Alcohol Use: None Drug Use: None General Adult EDM: Chief Complaint: BACK PAIN OR INJURY HPI: HPI: Patient is a 71 year old right handed male with history of HTN, HLD, DM, CKD, and testicular cancer s/p radiation in remission (2014) who presents with left- sided atraumatic radicular neck pain. Pain starts in his neck radiates to his left shoulder and then towards the back of his arm down to the elbow. Pain comes in waves and is described as intense and stabbing in nature. Has been present for approximately a week. 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 No falls, MVC's, recent trauma to the neck. He denies any weakness or sensory changes. No fevers or chills. No immunosuppression medications. No history of surgeries on his neck. No redness, swelling, or pain over the shoulder. Normal painless range of motion of the shoulder joint (reaches his arm over his head during interview). No obvious aggravating factors/movements. No alleviating factors. Has been taking his usual dose of Tylenol for his arthritis. Review of Systems: Review of Systems: Constitutional: Denies fever or chills. [] Eyes: Denies change in visual acuity. [] HENT: Denies nasal congestion or sore throat. [] Respiratory: Denies cough or shortness of breath. [] Cardiovascular: Denies chest pain Musculoskeletal: Reports left-sided radicular neck pain Integument: Denies rash. [] Neurologic: Denies focal weakness or sensory changes. [] Psychiatric: Denies depression or anxiety. [] Heart Score: C/O Chest Pain: No Allergies: Allergies: Allergies Coded Allergies Type Severity Reaction Last Updated Verified ibuprofen Allergy Intermediate ADVISED NOT TO TAKE BY HIS DOCTOR DUE TO KIDNEY PROBLEM 07/23/15 Yes Physical Exam: PE: Constitutional: Sitting up in bed, at times appears uncomfortable and has paroxysmal was of severe pain with grimacing HENT: Normocephalic, atraumatic Neck: No midline cervical tenderness to palpation, normal ROM of the neck. No meningismus or rigidity. Cardiovascular:Heart rate regular rhythm, no murmur [] Lungs & Thorax: Normal work of breathing Skin: No overlying rashes Back: No tenderness, no CVA tenderness. [] Extremities: 2+ radial pulses bilaterally. Normal range of motion of the shoulder and elbow. No overlying warmth, erythema, edema, or tenderness. Muscular tenderness over the trapezius and at the triceps on the left. No overlying skin changes. [] Neurologic: Alert and oriented X 3, normal motor function, normal sensory function, no focal deficits noted. Specifically 5/5 strength bilaterally in: -Shoulder abduction -External/internal rotation of the shoulder -Flexion/extension of the elbow -Flexion/extension of the wrist -Wholesale Account Manager strength [] Psychologic: Affect normal, judgement normal, mood normal. [] Current Patient Data: Vital Signs: Vital Signs Date Time Temp Pulse Resp B/P (MAP) Pulse Ox O2 Delivery O2 Flow Rate FiO2 08/17/21 05:27 97.7 73 18 173/84 (113) 96 Room Air 97.7 EKG: EKG: [] Radiology/Procedures: Radiology/Procedures: [] Impression: [facility] [address] [place] [address] IMAGING REPORT Signed PATIENT: LINO DUMAS ACCOUNT: [id number] : 1950 LOCATION: ER AGE: 71 SEX: M EXAM STATUS: REG ER ORD. PHYSICIAN: LINO MORGAN MD REASON: left cervical radiculopathy, hx testicular cancer PROCEDURE: CT CERVICAL SPINE WO CONTRAST Exam: CT CERVICAL SPINE WO Date: 08/17/2021 6:32 AM Indication: left cervical radiculopathy, hx testicular cancer Comparison: None. Technique: CT imaging of the cervical spine was performed without contrast. Coronal and sagittal reformatted images were performed. One or more of the following dose reduction techniques were utilized: Automated exposure control (AEC), Adjustment of mA and/or kV according to patient size, Use of iterative reconstruction technique such as ASiR, CT scan done according to ALARA and image gently/image wisely. Findings: Straightening of the cervical lordosis. No acute fracture. No aggressive lytic or blastic osseous lesion. Mild to moderate multilevel degenerative disc height loss. Multilevel disc protrusions and marginal osteophytes results in multilevel mild to moderate spinal canal stenosis. Multilevel uncovertebral and facet arthrosis results in multilevel moderate to severe neural foraminal narrowing. The thyroid gland is normal. No cervical lymphadenopathy. The visualized aerodigestive tract is unremarkable. The visualized portions of the lungs are clear. Impression: 1. No acute osseous abnormality of the cervical spine. No suspicious osseous lesions. 2. Cervical spondylosis with multilevel moderate to severe neuroforaminal narrow ing. This could be further characterized with MRI, if clinically warranted. Electronically signed by: Ritu Vasquez MD (08/17/2021 7:07 AM) [id number] DICTATED and SIGNED BY: RITU VASQUEZ MD DATE: 08/17/21 [id number] 0 Course & Med Decision Making: Course & Med Decision Making Pertinent Labs and Imaging studies reviewed. (See chart for details) Patient is 71-year-old male with history of testicular cancer in remission s/p radiation (2014) who presents with atraumatic left-sided cervical radiculopathy. Neurovascularly intact with good strength and pulses as outlined above. No fever/chills, infectious symptoms, risk factors for spinal epidural abscess. With no weakness, no infectious risk factors, do not feel that he requires emergent MRI. Given his age and history of testicular cancer I do feel that he requires CT imaging of his neck to exclude compression fracture or bony lesion. We will treat with Tylenol, gabapentin, prednisone initially. 0641 CT without acute osseous process, but does show foraminal narrowing and spondylosis which may be contributing to his symptoms today, however, without weakness an MRI is not warranted emergently. Will ask that he follows with his PCP to discuss physical therapy and for ongoing pain management. Will be referred to our outpatient neurosurgery services. 0716 Shaheed Disclaimer: Shaheed Disclaimer: This electronic medical record was generated, in whole or in part, using a voice recognition dictation system. Departure Departure Impression: Primary Impression: Cervical radicular pain Disposition: HOME / SELF CARE / HOMELESS Condition: STABLE Referrals: KASSANDRA MOHAN MD (PCP) Schedule an appointment to discuss ongoing pain control, further work up, and physical therapy referral. BRIGIDA WOODALL MD Schedule an appt with our record center specialist if your symptoms are not getting better in the next month. Patient Instructions: Cervical Radiculopathy Additional Instructions: Return to the emergency department if you develop weakness in your left arm. Scripts Gabapentin (GABAPENTIN ) 300 Mg Capsule 300 MG PO TID for NEUROGENIC PAIN for 15 Days, #45 CAP 0 Refills Prov: LINO MORGAN MD 08/17/21 Prednisone (PREDNISONE) 50 Mg Tablet 1 TAB PO DAILY for 7 Days, #7 TAB 0 Refills Prov: LINO MORGAN MD 08/17/21 LINO MORGAN MD Aug 17, 2021 06:41
[2021-08-17] MEDS ORDERED: GABAPENTIN 300 MG CAPSULE. PO ONE (07:00)
[2021-08-17] MEDS ORDERED: predniSONE 10 MG TABLET PO ONE (07:00)
[2021-08-17] MEDS ORDERED: ACETAMINOPHEN 500 MG TABLET PO ONE (07:00)
--- NOTE | 2021-08-17 07:10 | RAD ---
Exam: CT CERVICAL SPINE WO Date: 08/17/2021 6:32 AM Indication: left cervical radiculopathy, hx testicular cancer Comparison: None. Technique: CT imaging of the cervical spine was performed without contrast. Coronal and sagittal ref ormatted images were performed. One or more of the following dose reduction techniques were utilized: Automated exposure control (AEC), Adjustment of mA and/or kV according to patient size, Use of itera tive reconstruction technique such as ASiR, CT scan done according to ALARA and image gently/image wi sely. Findings: Straightening of the cervical lordosis. No acute fracture. No aggressive lytic or blastic osseous les ion. Mild to moderate multilevel degenerative disc height loss. Multilevel disc protrusions and marginal o steophytes results in multilevel mild to moderate spinal canal stenosis. Multilevel uncovertebral and facet arthrosis results in multilevel moderate to severe neural foraminal narrowing. The thyroid gland is normal. No cervical lymphadenopathy. The visualized aerodigestive tract is unrem arkable. The visualized portions of the lungs are clear. Impression: 1. No acute osseous abnormality of the cervical spine. No suspicious osseous lesions. 2. Cervical spondylosis with multilevel moderate to severe neuroforaminal narrowing. This could be fu rther characterized with MRI, if clinically warranted. Electronically signed by: Prabhjot Vasquez MD (08/17/2021 7:07 AM) [id number]
[2021-08-17] MEDS ORDERED: PRED50TA PO (07:24)
[2021-08-17] MEDS ORDERED: GABA300C18 PO (07:24)
== END 2021-08-17 07:33 | disposition home or self-care (01) ==
LOC: ER 05:09
DX: M54.12 Radiculopathy, cervical region (principal); J45.909 Unspecified asthma, uncomplicated; M25.512 Pain in left shoulder; E11.9 Type 2 diabetes mellitus without complications; E78.00 Pure hypercholesterolemia, unspecified; I10 Essential (primary) hypertension; Z88.8 Allergy status to other drugs, medicaments and biological substances
CPT/HCPCS: 72125; 99284; J7512

== ENCOUNTER 2021-09-12 11:21 | Emergency (ER) | payer MEDICARE ==
[~2021-09-12] VITALS: Ht 175.3 cm; Wt 91.8 kg
[~2021-09-12 11:21] MED LIST changes: +GABA300C18 PO; +PRED50TA PO
--- NOTE | 2021-09-12 12:29 | RAD ---
XR SHOULDER_LEFT 2+ VIEWS History: Reason: pain with movement / Spl. Instructions: / History: Technique: 3 views left shoulder Comparison: None. Findings: No dislocation. No acute fracture. Mild left acromioclavicular DJD. Impression: 1. No acute osseous abnormality. Electronically signed by: Ed Heath DO (09/12/2021 12:27 PM) [id number]
[2021-09-12 13:31] VITALS: BP 162/88
[2021-09-12] MEDS ORDERED: HYDR-2761 PO (15:30)
[2021-09-12] MEDS ORDERED: CYCL10TA19 PO (15:30)
--- NOTE | 2021-09-12 15:31 | PHYS DOC ---
Past Medical History Past Medical History: Asthma, Cancer, Diabetes-Type II, High Cholesterol, Hypertension, Other Additional Past Medical Histor: tinnitus,TESTICULAR CA W/ RADIATION [place] (AZUL ROMO SHELL MOLD BONDER) Past Surgical History: Other Additional Past Surgical Histo: L testicle removal, nasal reconstruction,kidney stone removal (AZUL ROMO SHELL MOLD BONDER) Smoking Status: Former Smoker Alcohol Use: Occasionally Drug Use: None (AZUL ROMO SHELL MOLD BONDER) General Adult EDM: Chief Complaint: SHOUDLER HPI: HPI: Patient is a 71 year old male with history of diabetes type 2, hypertension, high cholesterol, who presents to the ED today complaining of 10 out of 10 neck pain, left shoulder pain, symptoms began mid July 2021. Patient denies any injuries. He states pain is sharp worse on movement. Denies anything specifically relieving the pain. He states he has been seen in the ED and they did a CT of the neck and he was told he has a pinched nerve in the neck causing him the shoulder and neck pain. He said he followed up with his PCP who recommended an MRI of his shoulder and neck. He is in the ED asking if we can do MRI. (AZUL ROMO SHELL MOLD BONDER) Review of Systems: Review of Systems: Constitutional: Denies fever or chills. [] Eyes: Denies change in visual acuity. [] HENT: Denies nasal congestion or sore throat. [] Respiratory: Denies cough or shortness of breath. [] Cardiovascular: Denies chest pain or edema. [] GI: Denies abdominal pain, nausea, vomiting, bloody stools or diarrhea. [] : Denies dysuria. [] Musculoskeletal: Reports neck and left shoulder pain Integument: Denies rash. [] Neurologic: Denies headache, focal weakness or sensory changes. [] Psychiatric: Denies depression or anxiety. [] (AZUL ROMO SHELL MOLD BONDER) Heart Score: C/O Chest Pain: N/A Risk Factors: Risk Factors: DM, Current or recent (<one month) smoker, HTN, HLP, family history of CAD, obesity. Risk Scores: Score 0 - 3: 2.5% MACE over next 6 weeks - Discharge Home Score 4 - 6: 20.3% MACE over next 6 weeks - Admit for Clinical Observation Score 7 - 10: 72.7% MACE over next 6 weeks - Early Invasive Strategies (AZUL ROMO SHELL MOLD BONDER) Allergies: Allergies: Allergies Coded Allergies Type Severity Reaction Last Updated Verified ibuprofen Allergy Intermediate ADVISED NOT TO TAKE BY HIS DOCTOR DUE TO KIDNEY PROBLEM 07/23/15 Yes (AZUL ROMO SHELL MOLD BONDER) Physical Exam: PE: Constitutional: Well developed, well nourished, no acute distress, non-toxic appearance. [] HENT: Normocephalic, atraumatic, bilateral external ears normal, oropharynx moist, no oral exudates, nose normal. [] Eyes: PERRLA, EOMI, conjunctiva normal, no discharge. [] Neck: Normal range of motion, no tenderness, supple, no stridor. [] Cardiovascular:Heart rate regular rhythm, no murmur [] Lungs & Thorax: Bilateral breath sounds clear to auscultation [] Abdomen: Bowel sounds normal, soft, no tenderness, no masses, no pulsatile masses. [] Skin: Warm, dry, no erythema, no rash. [] Back: No tenderness, no CVA tenderness. [] Extremities: No tenderness, no cyanosis, no clubbing, ROM intact, no edema. [] Neurologic: Alert and oriented X 3, normal motor function, normal sensory function, no focal deficits noted. [] Psychologic: Affect normal, judgement normal, mood normal. [] (AZUL ROMO SHELL MOLD BONDER) Current Patient Data: Vital Signs: Vital Signs Date Time Temp Pulse Resp B/P (MAP) Pulse Ox O2 Delivery O2 Flow Rate FiO2 09/12/21 13:31 79 18 162/88 (112) 95 Room Air 09/12/21 11:36 97.8 97.8 (AZUL ROMO SHELL MOLD BONDER) EKG: EKG: [] (AZUL ROMO SHELL MOLD BONDER) Radiology/Procedures: Radiology/Procedures: []PROCEDURE: SHOULDER 2+V LEFT XR SHOULDER_LEFT 2+ VIEWS History: Reason: pain with movement / Spl. Instructions: / History: Technique: 3 views left shoulder Comparison: None. Findings: No dislocation. No acute fracture. Mild left acromioclavicular DJD. Impression: 1. No acute osseous abnormality. Electronically signed by: Ed Heath DO (09/12/2021 12:27 PM) [id number] DICTATED and SIGNED BY: ED HEATH DO DATE: 09/12/21 [id number] 0 (AZUL ROMO APRN) Course & Med Decision Making: Course & Med Decision Making Pertinent Labs and Imaging studies reviewed. (See chart for details) This is a 71-year-old male patient presented to the ED today complaining of neck pain and left shoulder pain, symptoms of been going on since mid July 2021. Has been diagnosed with a pinched nerve in the neck. He is in the ED today requesting MRI of the neck and shoulder. Left shoulder x-rays were done which were negative for any acute findings. He had a CT of the cervical spine back in July which was negative for any acute findings. Patient was instructed to follow-up with his own PCP or orthopedic doctor and they will give him referral for MRI as an outpatient. (AZUL ROMO APRN) Dragon Disclaimer: Dragon Disclaimer: This electronic medical record was generated, in whole or in part, using a voice recognition dictation system. (AZUL ROMO APRN) Departure Departure Impression: Primary Impression: Neck pain Additional Impression: Left shoulder pain Qualified Codes: M25.512 - Pain in left shoulder Disposition: HOME / SELF CARE / HOMELESS Condition: STABLE Referrals: KASSANDRA MOHAN MD (PCP) follow up next week VENTURA KENDALL MD follow up in 1-2 weeks Patient Instructions: Shoulder Pain, [id number] Additional Instructions: You were seen for neck pain and shoulder pain. Please follow-up with your primary care doctor or the provided orthopedic doctor in the wall send you for an outpatient MRI if needed. Scripts Cyclobenzaprine Hcl (CYCLOBENZAPRINE HCL) 10 Mg Tablet 1 TAB PO TID, #30 TAB Prov: AZUL ROMO APRN 09/12/21 Hydrocodone Bit/Acetaminophen (HYDROCODONE-APAP 5-325 ) 1 Tab Tablet 1 TAB PO PRN Q6HRS PRN for PAIN, #14 TAB 0 Refills Prov: AZUL ROMO APRN 09/12/21 Attending Signature I have participated in the care of this patient and I have reviewed and agree with all pertinent clinical information above including history, exam, and recommendations. (KIMMIE GARCIA DO) AZUL ROMO APRN Sep 12, 2021 15:31 KIMMIE GARCIA DO Sep 12, 2021 16:33
== END 2021-09-12 15:43 | disposition home or self-care (01) ==
LOC: ER 11:21
DX: M54.2 Cervicalgia (principal); M25.512 Pain in left shoulder; J45.909 Unspecified asthma, uncomplicated; E11.9 Type 2 diabetes mellitus without complications; E78.00 Pure hypercholesterolemia, unspecified; I10 Essential (primary) hypertension; Z88.6 Allergy status to analgesic agent
CPT/HCPCS: 73030; 99283

== ENCOUNTER → 2021-10-04 | Outpatient (CLI) | payer MEDICARE ==
[2021-09-12 13:31] VITALS: BP 162/88
[~2021-10-04] MED LIST changes: +HYDR-2761 PO
--- NOTE | 2021-10-04 13:09 | KCIC ---
EXAMINATION: MRI cervical spine without IV contrast INDICATION: Left upper extremity pain from neck and down arm. COMPARISON: None TECHNIQUE: Multiplanar, multi-sequence MRI of the cervical spine was performed. FINDINGS: POSTERIOR FOSSA: Included posterior fossa is unremarkable. CERVICAL SPINAL CORD: The cervical cord is normal in morphology and signal intensity. ALIGNMENT: The alignment at the craniocervical junction is normal. The lateral masses of C1 are appro priately aligned with C2. There is no listhesis or scoliosis of the subaxial cervical spine. VERTEBRAE: Normal bone marrow signal intensity. No acute fracture. Severe multilevel degenerative changes with disc desiccation, disc space narrowing and osteophytes. S pecific level as follow: C2-C3: Diffuse disc bulge indenting anterior thecal sac. Bilateral facet arthropathy. No significant canal stenosis or neuroforaminal narrowing. C3-C4: Posterior disc osteophyte complex with broad-based central disc extrusion indenting and flatte aly anterior spinal cord. Moderate to severe canal stenosis. Bilateral facet and uncovertebral arthr opathy. Moderate to severe bilateral neuroforaminal narrowing. C4-C5: Diffuse disc bulge indenting anterior thecal sac. Bilateral facet and uncovertebral arthropath y. No significant canal stenosis. Moderate to severe left and mild to moderate right neuroforaminal n arrowing. C5-C6: Posterior disc osteophyte complex abutting and flattening anterior spinal cord. Moderate canal stenosis. Bilateral facet and uncovertebral arthropathy. Moderate bilateral neuroforaminal narrowing . C6-7: Posterior disc osteophyte complex indenting anterior thecal sac. Mild canal stenosis. Bilateral facet and uncovertebral arthropathy, causing mild bilateral neuroforaminal narrowing. C7-T1: No canal stenosis or neuroforaminal narrowing. EXTRA-SPINAL STRUCTURES: None. IMPRESSION: Severe multilevel degenerative changes as described above, worst at C3-C4 with broad-based central di sc extrusion indenting and flattening anterior spinal cord, causing moderate to severe canal stenosis . Moderate to severe bilateral neuroforaminal narrowing at C3-4. Electronically signed by: Sonu Blanchard MD (10/04/2021 1:06 PM) [id number]
== END ==
LOC: KCIC MRI 10:40
PROVIDERS: ATTEND Family Medicine
DX: M47.22 Other spondylosis with radiculopathy, cervical region (principal); M48.02 Spinal stenosis, cervical region; M50.31 Other cervical disc degeneration, high cervical region; M25.78 Osteophyte, vertebrae; M48.8X2 Other specified spondylopathies, cervical region
CPT/HCPCS: 72141

== ENCOUNTER → 2021-11-02 | Outpatient (CLI) | payer MEDICARE ==
[~2021-11-02] MED LIST changes: +AMLO-187 PO; +CYAN100072 PO; +DEXAMETHASONE PRES.FREE 10 MG/ML VIAL. ONE; -FENO134C PO; +FENO134C22 PO; +GLIP2.5T16 PO; +IOHEXOL 180 MG/ML 10 ML VIAL. ONE
--- NOTE | 2021-11-02 14:11 | PDOC1 ---
INITIAL PAIN CONSULT DATE OF SERVICE: DOS: DATE: 11/02/21 TIME: 14:04 CHIEF COMPLAINT: Chief Complaint: Neck and left upper extremity pain HISTORY OF PRESENT ILLNESS: 71-year-old male presents with history of pain in the base the neck and left upper extremity for approximately 3 months left shoulder for specific injury or accident that he is aware of is getting worse with time with pain rating the base the neck into the shoulder and the left side into the posterior upper back on the left side to the left arm mostly in the deltoid and forearm also some tingling in the fingers at times patient reports it is worse with repetitive motions weightlifting reaching forward with weightbearing twisting motion such as taking the lid off of a jar with his left hand and is noticed some weakness in these activities as well patient reports increased fatigue and left upper extremity as well as difficulty with sleeping on his left side. Patient reports it wakes him from sleep least once or twice a night he has had chiropractic treatment doing that weekly and continues to do that which he feels is helpful but is temporary also taking hydrocodone again helpful by about 30% but also temporary. Patient reports her pain is constant aching radiating the left upper extremity intermittent intensity but always present. Patient reports his disability rating 0-10 10 being the worst is a 5 with family home responsibilities recreation social activity occupation sexual behavior 3 with self-care and life support activities. Patient did have a MRI scan of the cervical spine showing multilevel degenerative changes C3-4 C4-5 C5-6 C6-7 with posterior disc and osteophyte complexes C4-5 through C6-7 with mild canal stenosis at C6-7 and C5-6 moderate to severe left and mild to moderate right neuroforaminal narrowing at C4-5 mild canal stenosis at C6-7 causing mild bilateral neuroforaminal narrowing. Patient reports no loss of motor function but significant fatigability of left upper extremity with repetitive motion specially reaching over his head with his left arm and driving with his left hand on the steering wheel. PAST MEDICAL HISTORY: PMH: Hypertension, arthritis, type 2 diabetes, hearing loss, testicular cancer PREVIOUS SURGERIES: Past Surgical Hx: Left orchiectomy, kidney stone extraction CURRENT MEDICATIONS: Current Meds: Active Scripts Medications Dose Route/Sig Max Daily Dose Days Date Category B-12 (Cyanocobalamin (Vitamin B-12)) 1,000 Mcg Tablet 1 Tab PO DAILY 30 11/02/21 Reported Glipizide Xl (Glipizide) 2.5 Mg Tab.er.24 1 Tab PO DAILY 30 11/02/21 Reported Amlodipine Besylate 10 Mg Tablet 10 Mg PO DAILY 11/02/21 Reported Hydrocodone-Apap 5-325 (Hydrocodone Bit/Acetaminophen) 1 Tab Tablet 1 Tab PO PRN Q6HRS PRN 09/12/21 Rx Albuterol Sulfate Conc Neb Soln (Albuterol Sulfate) 2.5 Mg/0.5 Ml Vial.neb 2.5 Mg NEB QIDPRN PRN 09/20/18 Reported Fenofibrate (Fenofibrate,Micronized) 200 Mg Capsule 200 Mg PO HS 03/12/18 Reported Lisinopril 40 Mg Tablet 40 Mg PO DAILY 08/06/17 Reported Aspir 81 (Aspirin) 81 Mg Tablet.dr 81 Mg PO DAILY 08/12/15 Reported [Albuterol] 2 Puff IH PRN BID PRN 07/21/15 Reported Metformin Hcl 500 Mg Tablet 2 Tab PO DAILYBFRSUP 07/21/15 Reported Simvastatin 20 Mg Tablet 1 Tab PO QHS 07/21/15 Reported ALLERGIES; Allergies: Coded Allergies: ibuprofen (Verified Allergy, Intermediate, ADVISED NOT TO TAKE BY HIS DOCTOR DUE TO KIDNEY PROBLEM, 07/23/15) FAMILY HISTORY: Family Hx: Pulmonary disease, cancers, stroke SOCIAL HISTORY: Social Hx: Patient drink alcohol about once weekly does not smoke not use any illegal illicit or recreational drugs lives with spouse and 1 daughter lives locally in [facility] 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 REVIEW OF SYSTEMS: ROS: Positive for those items mentioned in history of present illness, all systems are reviewed, otherwise negative ,and are complete full and well-documented on patient's chart. PHYSICAL EXAM: VS: Blood pressure is 167/86 pulse 84 respirations 18 temperature 90.3 F height is 5 foot 9 inches weight is 201 pounds. PE: PHYSICAL EXAMINATION: GENERAL: The patient is awake, alert, oriented, appropriate, very pleasant in demeanor HEENT: Shows normocephalic, atraumatic. Extraocular movements are intact and symmetrical. Oral cavity: Mucous membranes moist and pink. Dentition is intact. NECK: Shows anterior throat supple without palpable lymphadenopathy noted. Swallow reflex symmetrical. CHEST: Shows normal on inspection. Breath sounds are clear bilaterally, distant but no rales rhonchi or wheezes auscultated. HEART: Shows S1, S2 clear. No murmurs auscultated. ABDOMEN: Soft, nontender, nondistended. No palpable organomegaly is noted. No rebound or guarding demonstrated. BACK: Shows spine grossly in the midline. Normal-appearing cervical lordotic curvature. Cervical paraspinous muscles show symmetrical with inspection, on palpation some moderate tenderness diffusely in the inferior aspect cervical paraspinous muscular bilaterally worse on the left than the right without trigger points atrophy or hypertrophy or radiation. Patient shows good rotation motion cervical spine with lumbar as well as extension flexion without significant difficulty or limitation. There is slightly increased thoracic kyphosis, some minor flattening of the lumbar lordotic curvature. EXTREMITIES: Upper extremities show deep tendon reflexes 2+ in the biceps and triceps tendons. 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 Peripheral pulses are 2+ radial. No peripheral edema is noted bilaterally. Upper extremities are warm and dry to touch, equal in color and appearance. Shoulder shrug strong and intact without loss of strength on resistance bilaterally as is abduction of the shoulders 90 degrees bilaterally. SKIN: Shows warm and dry, good turgor. No edema. No sores, rashes or bruising throughout. IMPRESSION: Impression: 71-year-old male with approximate 3-month history increasing pain base the neck left upper extremity radicular fashion. MRI scan cervical spine spine as noted Arthritis Hypertension Type 2 diabetes Plan: Options were discussed the patient occluding conservative managements physical therapies and interventional techniques. Patient would like to pursue interventional techniques. We discussed a cervical epidural steroid injection using descriptions as well as anatomical models to describe the procedure. Risks were discussed including but not limited to: Bleeding, infection, possibility of epidural hematoma and subsequent neurological compromise, dural puncture, headaches, spinal cord and/or nerve damage, side effects of steroid medication, and poor results regarding pain control. Patient understands and wished to proceed. Patient will return to the clinic in approximately 2 weeks for follow-up, was counseled as to return appointment, activity level, and side effect to be aware of. Procedure cervical epidural steroid injection at the C6-7 level, using local anesthetic under sterile prep and drape using C-arm fluoroscopic guidance under local anesthesia medications injected ; 20 mg dexamethasone +5 mL normal saline and 2 mL contrast; condition at discharge is stable patient tolerated procedure well. and had no complications LAMONTE CURTIS MD Nov 02, 2021 14:11
--- NOTE | 2021-11-02 14:12 | PDOC4 ---
Procedure Note: ICD 10 Code: ICD 10 Code: M54.12 M50.30 Procedure Note: Patient was consented for cervical epidural steroid injection with fluoroscopic guidance. Risks were discussed including but not limited to: Bleeding, infection, possibility of epidural hematoma and subsequent neurological compromise, dural puncture, headaches, spinal cord and/or nerve damage, side effects of steroid medication, and poor results regarding pain control. Patient understands and wished to proceed. Procedure cervical epidural steroid injection at the C6-7 level, using local anesthetic under sterile prep and drape using C-arm fluoroscopic guidance under local anesthesia medications injected ; 20 mg dexamethasone +5 mL normal saline and 2 mL contrast; condition at discharge is stable patient tolerated procedure well. and had no complications LAMONTE CURTIS MD Nov 02, 2021 14:12
== END | disposition home or self-care (01) ==
LOC: PNCL 10:01
PROVIDERS: ATTEND Anesthesiology
DX: M54.2 Cervicalgia (principal); M79.602 Pain in left arm; M50.30 Other cervical disc degeneration, unspecified cervical region; M54.12 Radiculopathy, cervical region; I10 Essential (primary) hypertension; E11.9 Type 2 diabetes mellitus without complications; M19.90 Unspecified osteoarthritis, unspecified site; E78.00 Pure hypercholesterolemia, unspecified; J45.909 Unspecified asthma, uncomplicated; Z87.891 Personal history of nicotine dependence; Z79.84 Long term (current) use of oral hypoglycemic drugs; Z79.899 Other long term (current) drug therapy; Z98.890 Other specified postprocedural states; Z72.89 Other problems related to lifestyle; Z88.8 Allergy status to other drugs, medicaments and biological substances
CPT/HCPCS: 62321; G0463; J1100; Q9965

== ENCOUNTER → 2021-11-16 | Outpatient (CLI) | payer MEDICARE ==
--- NOTE | 2021-11-16 12:43 | PDOC ---
Progress Note - Pain Clinic Date of Service: DOS: DATE: 11/16/21 TIME: 12:39 Diagnosis: Dx: Cervical radiculopathy with cervical degenerative disc disease. History or Present Illness: HPI: 71-year-old male returns for follow-up status post cervical epidural steroid injection x1. Patient reports about 70% improvement in the neck and left upper extremity patient has new pain in the right upper extremity he reports that was not there previously more noticeable with repetitive motions and using his right arm but is only to the shoulder and the upper part of the posterior right arm for the left arm is all the way to the hand and the forearm patient reports no recent injury or accident to explain the difference in pain but is now radiating to the right side as well patient rates his pain is a 3 on scale 10 however at its worst an average and a 0 its least over the past week and is a 3 today. 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 Patient reports no deficits no los s of function but some easy fatigability again more on the left. Physical Exam: VS: Blood pressure is 132/82 pulse 81 respirations 18 temperature 90.4 F height is 5 feet 9 inches weight is 204 pounds. PE: PHYSICAL EXAMINATION: GENERAL: The patient is awake, alert, oriented, appropriate, very pleasant in demeanor HEENT: Shows normocephalic, atraumatic. Extraocular movements are intact and symmetrical. Patient wearing eyeglasses. Oral cavity: Mucous membranes moist and pink. NECK: Shows anterior throat supple without palpable lymphadenopathy noted. Swallow reflex symmetrical. CHEST: Shows normal on inspection. Breath sounds are clear bilaterally. HEART: Shows S1, S2 clear. No murmurs auscultated. ABDOMEN: Soft, nontender, nondistended. No palpable organomegaly is noted. BACK: Shows spine grossly in the midline. Normal-appearing cervical lordotic curvature. Cervical paraspinous muscles show symmetrical with inspection, on palpation some moderate tenderness diffusely throughout the upper middle lobe which is the paraspinous muscles bilaterally but only diffusely without radiation. Patient shows full rotation of motion cervical spine with lateral as well as extension flexion without significant difficulty. There is slightly increased thoracic kyphosis, some minor flattening of the lumbar lordotic curvature. EXTREMITIES: Upper extremities show deep tendon reflexes 2+ in the biceps triceps tendons. 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 Peripheral pulses are 2+ radial. No peripheral edema is noted bilaterally. Upper extremities are warm and dry. SKIN: Shows warm and dry, good turgor. No edema. No sores, rashes or bruising throughout. Procedure: Procedure: Options were discussed with the patient. Patient's old chart was reviewed his current medication regimen updated current review of systems updated today as well. We will proceed with a cervical epidural steroid injection today with fluoroscopic guidance. Risks were discussed including but not limited to: Bleeding, infection, possibility of epidural hematoma and subsequent neurological compromise, dural puncture, headaches, spinal cord and/or nerve d amage, side effects of steroid medication, and poor results regarding pain control. Patient understands and wished to proceed. Patient return to clinic in approximately 2 weeks for follow-up, was counseled as to return appointment, activity level, and side effect to be aware of. Medication Injected: Med Injected: Procedure cervical epidural steroid injection at the C6-7 level, using local anesthetic under sterile prep and drape using C-arm fluoroscopic guidance under local anesthesia medications injected ; 20 mg dexamethasone +5 mL normal saline and 2 mL contrast; condition at discharge is stable patient tolerated procedure well. and had no complications Condition at Discharge: Condition at Discharge: Condition at discharge stable, patient tolerated procedure well and had no complications. LAMONTE CURTIS MD Nov 16, 2021 12:42
--- NOTE | 2021-11-16 12:43 | PDOC4 ---
Procedure Note: ICD 10 Code: ICD 10 Code: M54.12 M50.30 Procedure Note: Patient was consented for cervical epidural steroid injection with fluoroscopic guidance. Risks were discussed including but not limited to: Bleeding, infection, possibility of epidural hematoma and subsequent neurological compromise, dural puncture, headaches, spinal cord and/or nerve damage, side effects of steroid medication, and poor results regarding pain control. Patient understands and wished to proceed. Procedure cervical epidural steroid injection at the C6-7 level, using local anesthetic under sterile prep and drape using C-arm fluoroscopic guidance under local anesthesia medications injected ; 20 mg dexamethasone +5 mL normal saline and 2 mL contrast; condition at discharge is stable patient tolerated procedure well. and had no complications LAMONTE CURTIS MD Nov 16, 2021 12:43
== END | disposition home or self-care (01) ==
LOC: PNCL 11:11
PROVIDERS: ATTEND Anesthesiology
DX: M50.10 Cervical disc disorder with radiculopathy, unspecified cervical region (principal); M54.12 Radiculopathy, cervical region; I10 Essential (primary) hypertension; E78.00 Pure hypercholesterolemia, unspecified; E11.9 Type 2 diabetes mellitus without complications; J45.909 Unspecified asthma, uncomplicated; Z87.891 Personal history of nicotine dependence; Z79.82 Long term (current) use of aspirin; Z79.84 Long term (current) use of oral hypoglycemic drugs; Z79.899 Other long term (current) drug therapy; Z98.890 Other specified postprocedural states; Z72.89 Other problems related to lifestyle; Z88.8 Allergy status to other drugs, medicaments and biological substances
CPT/HCPCS: 62321; J1100; Q9965